=== PATIENT | female | born 1985 | race Native Hawaiian/Other Pacific Islander ===

== ENCOUNTER 2017-01-03 15:30 | Observation (INO) | payer OTHER ==
[~2017-01-03] VITALS: Ht 165.1 cm; Wt 97.5 kg
[2017-01-03] MEDS ORDERED: SYNT150T PO (15:37)
[2017-01-03] MEDS ORDERED: PRENTAB40 PO (15:37)
[2017-01-03] MEDS ORDERED: MORPHINE 2 MG/ML 1ML SYRINGE IV ONE (16:00)
[2017-01-03] MEDS ORDERED: NS 1,000 ML IV ONE ×3 (16:00→19:30)
[2017-01-03 16:18] LABS: BASO # 0.1 K/mm3 (0.0-0.2); BASO % 0.5 % (0.0-1.0); EOS # 0.2 K/mm3 (0.0-0.50); EOS % 1.8 % (0.0-3.0); LARGE UNSTAINED CELL # 0.2 K/mm3 (0.0-0.4); LARGE UNSTAINED CELL % 1.5 % (0.0-4.0); LYMPH # 3.3 K/mm3 (1.5-4.5); LYMPH % 27.8 % (24.0-44.0); MEAN CORPUSCULAR HEMOGLOBIN 28.6 pg (27.0-33.0); MEAN CORPUSCULAR HGB CONC 33.5 g/dl (32.0-36.5); MEAN CORPUSCULAR VOLUME 85.6 fl (80.0-96.0); MONO # 0.3 K/mm3 (0.0-0.8); MONO % 2.8 % (0.0-5.0); NEUTROPHILS # 7.3 K/mm3 (1.8-7.7); NEUTROPHILS % 65.6 % (36.0-66.0); PLATELET COUNT, AUTOMATED 374 k/mm3 (150-450); RED CELL DISTRIBUTION WIDTH 13.4 % (11.5-14.5); WHITE BLOOD COUNT 11.2 K/mm3 (4.0-10.0)
--- NOTE | 2017-01-03 17:27 | REP ---
Obstetric ultrasound, first trimester, emergency study for vaginal bleeding in passing large clots: There are no comparisons. By LMP. The patient has approximate 10 weeks gestation. The study is performed with transabdominal and endovaginal ultrasound. Balloon balloon The bladder is nondistended. There is a tiny volume of fluid in the endocervical canal. There is a 5.5 cm mass in the cervix. This could be a large clot or products of conception. There is no intrauterine gestational sac. The endometrium is not thickened measuring 3 mm. There is no fluid in the endometrial canal. The right and left ovaries could not be visualized. Impression: Findings are compatible with spontaneous in progress. Signed by Matti Rojas MD 01/03/2017 05:19 P
[2017-01-03] MEDS: LR 1,000 ML IV SCH (19:01)
[2017-01-03] MEDS ORDERED: CALC600T57 PO (19:11)
[2017-01-03 20:38] LABS: MEAN CORPUSCULAR HGB CONC 33.5 g/dl (32.0-36.5); MEAN CORPUSCULAR VOLUME 86.5 fl (80.0-96.0); RED CELL DISTRIBUTION WIDTH 13.7 % (11.5-14.5); WHITE BLOOD COUNT 10.2 K/mm3 (4.0-10.0)
[2017-01-03 23:30] VITALS: BP 108/63
[2017-01-04 04:00] VITALS: BP 107/52
[2017-01-04] MEDS: LR 1,000 ML IV SCH (04:08)
[2017-01-04] MEDS ORDERED: ACETAMINOPHEN 500 MG TAB PO PRN (04:45)
[2017-01-04] MEDS ORDERED: LEVOTHYROXINE 0.15 MG TAB (150 MCG) PO SCH (06:00)
[2017-01-04 07:04] LABS: BASO % 0.4 % (0.0-1.0); EOS # 0.2 K/mm3 (0.0-0.50); LARGE UNSTAINED CELL # 0.1 K/mm3 (0.0-0.4); LARGE UNSTAINED CELL % 1.3 % (0.0-4.0); LYMPH # 2.2 K/mm3 (1.5-4.5); LYMPH % 25.6 % (24.0-44.0); MEAN CORPUSCULAR HEMOGLOBIN 28.9 pg (27.0-33.0); MEAN CORPUSCULAR VOLUME 87.6 fl (80.0-96.0); MONO # 0.3 K/mm3 (0.0-0.8); MONO % 3.8 % (0.0-5.0); NEUTROPHILS # 5.8 K/mm3 (1.8-7.7); NEUTROPHILS % 66.8 % (36.0-66.0); PLATELET COUNT, AUTOMATED 224 k/mm3 (150-450); RED CELL DISTRIBUTION WIDTH 13.8 % (11.5-14.5); WHITE BLOOD COUNT 8.6 K/mm3 (4.0-10.0)
[2017-01-04 08:00] VITALS: BP 107/52
== END 2017-01-04 09:35 | disposition home or self-care (01) ==
LOC: M ED 16:59 → M ED INP 19:01 → M PED 23:30
PROVIDERS: ADMIT Obstetrics & Gynecology; ATTEND Obstetrics & Gynecology
DX: O03.1 Delayed or excessive hemorrhage following incomplete spontaneous abortion (principal); I95.1 Orthostatic hypotension; R00.0 Tachycardia, unspecified; E03.9 Hypothyroidism, unspecified

== ENCOUNTER 2018-03-02 09:07 | Emergency (ER) | payer OTHER ==
[2018-03-02 09:49] LABS: BASO # 0.1 10^3/uL (0.0-0.2); BASO % 0.6 % (0.0-1.0); EOS # 0.2 10^3/uL (0.0-0.50); EOS % 2.4 % (0.0-3.0); HEMATOCRIT 40.1 % (36.0-47.0); HEMOGLOBIN 13.4 g/dl (12.0-15.5); IMMATURE GRANULOCYTE % 0.3 % (0-3.0); LYMPH # 1.1 10^3/uL (1.5-4.5); LYMPH % 10.9 % (24.0-44.0); MEAN CORPUSCULAR HEMOGLOBIN 28.4 pg (27.0-33.0); MEAN CORPUSCULAR HGB CONC 33.4 g/dl (32.0-36.5); MONO # 0.5 10^3/uL (0.0-0.8); MONO % 5.2 % (0.0-5.0); NEUTROPHILS # 7.8 10^3/uL (1.8-7.7); NEUTROPHILS % 80.6 % (36.0-66.0); PLATELET COUNT, AUTOMATED 361 10^3/uL (150-450); RED BLOOD COUNT 4.72 10^6/uL (4.00-5.40); RED CELL DISTRIBUTION WIDTH 13.2 % (11.5-14.5); WHITE BLOOD COUNT 9.7 10^3/uL (4.0-10.0)
[2018-03-02] MEDS ORDERED: ONDANSETRON 4MG/2ML VIAL (J2405) As Ordered (09:58)
[2018-03-02] MEDS: NS 1,000 ML IV (10:00)
[2018-03-02 10:05] LABS: BEDSIDE GLUCOSE 105 MG/DL (70-105)
[2018-03-02] MEDS: ONDANSETRON 4MG/2ML VIAL (J2405) IV (10:09)
[2018-03-02 10:26] LABS: ALBUMIN 3.5 GM/DL (3.2-5.2); ALKALINE PHOSPHATASE 50 U/L (45-117); ALT/SGPT 19 U/L (12-78); ANION GAP 8 MEQ/L (8-16); AST/SGOT 12 U/L (7-37); BILIRUBIN,DIRECT < 0.1 MG/DL (0.0-0.2); BILIRUBIN,TOTAL 0.3 MG/DL (0.2-1.0); BLOOD UREA NITROGEN 10 MG/DL (7-18); CALCIUM LEVEL 6.6 MG/DL (8.5-10.1); CARBON DIOXIDE LEVEL 26 MEQ/L (21-32); CHLORIDE LEVEL 107 MEQ/L (98-107); CREATININE FOR GFR 0.94 MG/DL (0.55-1.30); FREE T4 1.23 NG/DL (0.76-1.46); GLOMERULAR FILTRATION RATE > 60.0 (>60); GLUCOSE, FASTING 119 MG/DL (70-100); MAGNESIUM LEVEL 1.8 MG/DL (1.8-2.4); POTASSIUM SERUM 3.6 MEQ/L (3.5-5.1); SODIUM LEVEL 141 MEQ/L (136-145); TOTAL PROTEIN 7.4 GM/DL (6.4-8.2)
[2018-03-02 12:07] LABS: AMPHETAMINES LEVEL URINE NEGATIVE (NEGATIVE); BARBITURATES URINE NEGATIVE (NEGATIVE); BENZODIAZEPINES URINE NEGATIVE (NEGATIVE); CANNABINOIDS URINE NEGATIVE (NEGATIVE); COCAINE METABOLITE URINE NEGATIVE (NEGATIVE); METHADONE URINE NEGATIVE (NEGATIVE); OPIATES URINE NEGATIVE (NEGATIVE); PHENCYCLIDINE URINE NEGATIVE (NEGATIVE)
[2018-03-02 12:20] LABS: KETONE, URINE AUTO RFX NEGATIVE (NEGATIVE); MUCUS, URINE RFX SMALL (NEGATIVE); NITRITE, URINE AUTO RFX NEGATIVE (NEGATIVE); RBC, URINE AUTO RFX 2 /HPF (0-3); SPECIFIC GRAVITY UR AUTO RFX 1.014 (1.002-1.035); SQUAM EPITHELIAL CELL UR AURFX 0 /HPF (0-6)
[2018-03-02 12:27] LABS: LEUKOCYTE ESTERASE UR AUTO RFX TRACE (NEGATIVE); WBC, URINE AUTO RFX 37 /HPF (0-3)
[2018-03-02] MEDS: NITROFURANTOIN (MACROBID) 100 MG CAP PO (13:27)
== END 2018-03-02 13:30 | disposition home or self-care (01) ==
LOC: M ED 09:07
DX: R55 Syncope and collapse (principal); N39.0 Urinary tract infection, site not specified; Z72.0 Tobacco use; Z79.899 Other long term (current) drug therapy
CPT/HCPCS: J2405

== ENCOUNTER 2018-04-25 12:48 | Inpatient (IN) | payer OTHER ==
[2018-04-25 13:36] LABS: IONIZED CALCIUM 2.9 MG/DL (4.5-5.3)
[2018-04-25 13:40] LABS: BASO % 0.5 % (0.0-1.0); EOS # 0.1 10^3/uL (0.0-0.50); EOS % 1.1 % (0.0-3.0); HEMATOCRIT 39.9 % (36.0-47.0); HEMOGLOBIN 13.6 g/dl (12.0-15.5); IMMATURE GRANULOCYTE % 0.4 % (0-3.0); LYMPH # 1.8 10^3/uL (1.5-4.5); LYMPH % 22.3 % (24.0-44.0); MEAN CORPUSCULAR HEMOGLOBIN 29.1 pg (27.0-33.0); MEAN CORPUSCULAR HGB CONC 34.1 g/dl (32.0-36.5); MEAN CORPUSCULAR VOLUME 85.4 fl (80.0-96.0); MONO # 0.6 10^3/uL (0.0-0.8); MONO % 6.9 % (0.0-5.0); NEUTROPHILS # 5.5 10^3/uL (1.8-7.7); NEUTROPHILS % 68.8 % (36.0-66.0); PLATELET COUNT, AUTOMATED 358 10^3/uL (150-450); RED BLOOD COUNT 4.67 10^6/uL (4.00-5.40); RED CELL DISTRIBUTION WIDTH 14.2 % (11.5-14.5); WHITE BLOOD COUNT 7.9 10^3/uL (4.0-10.0)
[2018-04-25 13:48] LABS: CONTROL LINE HCG INT CTR LINE PRESENT; HCG, SERUM QUALITATIVE NEGATIVE (NEGATIVE)
[2018-04-25 14:01] LABS: PTH INTACT < 6.3 PG/ML (18.5-88.0)
[2018-04-25 14:02] LABS: ALBUMIN 3.2 GM/DL (3.2-5.2); ALBUMIN/GLOBULIN RATIO 0.76 (1.00-1.93); ALKALINE PHOSPHATASE 39 U/L (45-117); ALT/SGPT 45 U/L (12-78); ANION GAP 8 MEQ/L (8-16); AST/SGOT 20 U/L (7-37); BILIRUBIN,TOTAL 0.5 MG/DL (0.2-1.0); BLOOD UREA NITROGEN 9 MG/DL (7-18); CALCIUM LEVEL 5.4 MG/DL (8.5-10.1); CARBON DIOXIDE LEVEL 25 MEQ/L (21-32); CHLORIDE LEVEL 109 MEQ/L (98-107); CREATININE FOR GFR 0.87 MG/DL (0.55-1.30); FREE THYROXINE INDEX 5.2 % (1.3-4.8); GLOMERULAR FILTRATION RATE > 60.0 (>60); GLUCOSE, FASTING 84 MG/DL (70-100); MAGNESIUM LEVEL 1.6 MG/DL (1.8-2.4); POTASSIUM SERUM 3.6 MEQ/L (3.5-5.1); SODIUM LEVEL 142 MEQ/L (136-145); T UPTAKE 32 % (30-39); THYROXINE (T4) 16.1 UG/DL (4.5-12.0); TOTAL PROTEIN 7.4 GM/DL (6.4-8.2)
[2018-04-25 14:36] LABS: TOTAL 25(OH) VITAMIN D 43.9 NG/ML (30.0-100.0)
[2018-04-25] MEDS: CALCIUM GLUCONATE 1,000 MG in D5W MINI-BAG PLUS 100 ML IV ×2 (15:01→16:12)
[2018-04-25 15:19] LABS: PHOSPHORUS LEVEL 5.5 MG/DL (2.5-4.9)
[2018-04-25] MEDS: MAG SULF 1GM/100ML (MAG RUN) 1 GM in APPROPRIATE DILUENT 1 EA IV ×2 (17:20→18:59)
[2018-04-25] MEDS ORDERED: ONDANSETRON 4MG/2ML VIAL (J2405) IV (17:30)
[2018-04-25 19:53] LABS: IONIZED CALCIUM 3.4 MG/DL (4.5-5.3)
[2018-04-25 20:14] LABS: CK-MB VALUE MASS < 1.0 NG/ML (<3.6); CPK CREATINE PHOSPHOKINASE 211 U/L (26-192); MB/CK RELATIVE INDEX 0.47 (< OR =4); TROPONIN I < 0.02 NG/ML (< 0.10)
[2018-04-25] MEDS: ENOXAPARIN 40 MG/0.4 ML SYRINGE (J1650) SC (21:00)
[2018-04-25] MEDS: CALCITRIOL 0.25 MCG CAP (S0169) PO (21:51)
[2018-04-25] MEDS: DOCUSATE SODIUM 100 MG CAP PO (21:51)
[2018-04-25] MEDS: CALCIUM CARBONATE 500 MG CHEW U/D PO (21:51)
[2018-04-26 00:21] LABS: IONIZED CALCIUM 3.2 MG/DL (4.5-5.3)
[2018-04-26 00:51] LABS: CK-MB VALUE MASS < 1.0 NG/ML (<3.6); CPK CREATINE PHOSPHOKINASE 188 U/L (26-192); MB/CK RELATIVE INDEX 0.53 (< OR =4); TROPONIN I < 0.02 NG/ML (< 0.10)
[2018-04-26] MEDS: CALCIUM GLUCONATE 1,000 MG in D5W MINI-BAG PLUS 100 ML IV ×3 (01:31→12:42)
[2018-04-26] MEDS: ACETAMINOPHEN TAB 650MG DOSE (2X325MG) PO (05:25)
[2018-04-26] MEDS: LEVOTHYROXINE 125MCG TABLET (0.125MG) PO (05:25)
[2018-04-26 05:46] LABS: HEMATOCRIT 38.8 % (36.0-47.0); MEAN CORPUSCULAR HEMOGLOBIN 28.9 pg (27.0-33.0); MEAN CORPUSCULAR HGB CONC 33.5 g/dl (32.0-36.5); MEAN CORPUSCULAR VOLUME 86.2 fl (80.0-96.0); PLATELET COUNT, AUTOMATED 314 10^3/uL (150-450); RED CELL DISTRIBUTION WIDTH 13.9 % (11.5-14.5); WHITE BLOOD COUNT 6.8 10^3/uL (4.0-10.0)
[2018-04-26 05:47] LABS: IONIZED CALCIUM 3.5 MG/DL (4.5-5.3)
[2018-04-26 06:09] LABS: ALBUMIN/GLOBULIN RATIO 0.83 (1.00-1.93); ALKALINE PHOSPHATASE 36 U/L (45-117); ALT/SGPT 44 U/L (12-78); AST/SGOT 19 U/L (7-37); BILIRUBIN,TOTAL 0.6 MG/DL (0.2-1.0); BLOOD UREA NITROGEN 9 MG/DL (7-18); CARBON DIOXIDE LEVEL 26 MEQ/L (21-32); CHLORIDE LEVEL 107 MEQ/L (98-107); CK-MB VALUE MASS < 1.0 NG/ML (<3.6); CPK CREATINE PHOSPHOKINASE 185 U/L (26-192); CREATININE FOR GFR 0.94 MG/DL (0.55-1.30); GLOMERULAR FILTRATION RATE > 60.0 (>60); GLUCOSE, FASTING 87 MG/DL (70-100); MB/CK RELATIVE INDEX 0.54 (< OR =4); PHOSPHORUS LEVEL 6.2 MG/DL (2.5-4.9); TOTAL PROTEIN 6.6 GM/DL (6.4-8.2); TROPONIN I < 0.02 NG/ML (< 0.10)
[2018-04-26 06:14] LABS: ANION GAP 10 MEQ/L (8-16); SODIUM LEVEL 143 MEQ/L (136-145)
[2018-04-26 06:20] LABS: POTASSIUM SERUM 4.4 MEQ/L (3.5-5.1)
[2018-04-26 06:21] LABS: CALCIUM LEVEL 6.7 MG/DL (8.5-10.1)
[2018-04-26] MEDS: CALCIUM CARBONATE 500 MG CHEW U/D PO ×3 (08:34→20:45)
[2018-04-26] MEDS: CALCITRIOL 0.25 MCG CAP (S0169) PO ×2 (08:34→20:45)
[2018-04-26] MEDS: PRENATAL VITAMINS CHEWABLE TABLET PO (08:34)
[2018-04-26] MEDS: DOCUSATE SODIUM 100 MG CAP PO ×2 (08:34→20:45)
[2018-04-26 08:53] LABS: MAGNESIUM LEVEL 1.8 MG/DL (1.8-2.4)
[2018-04-26] MEDS ORDERED: CALCITRIOL 0.25 MCG CAP (S0169) PO (09:00)
[2018-04-26] MEDS ORDERED: CALCIUM/VITAMIN D 500 MG TAB PO (09:00)
[2018-04-26 13:56] LABS: IONIZED CALCIUM 3.7 MG/DL (4.5-5.3)
[2018-04-26] MEDS: D5W IV (14:40)
[2018-04-26] MEDS: CALCIUM GLUCONATE IV (14:40)
[2018-04-26] MEDS: ENOXAPARIN 40 MG/0.4 ML SYRINGE (J1650) SC (20:45)
[2018-04-27 01:07] LABS: IONIZED CALCIUM 4.2 MG/DL (4.5-5.3)
[2018-04-27] MEDS: D5W IV (02:00)
[2018-04-27] MEDS: CALCIUM GLUCONATE IV (02:00)
[2018-04-27] MEDS: LEVOTHYROXINE 125MCG TABLET (0.125MG) PO (06:21)
[2018-04-27 07:16] LABS: HEMATOCRIT 40.7 % (36.0-47.0); HEMOGLOBIN 13.6 g/dl (12.0-15.5); MEAN CORPUSCULAR HEMOGLOBIN 28.8 pg (27.0-33.0); MEAN CORPUSCULAR HGB CONC 33.4 g/dl (32.0-36.5); PLATELET COUNT, AUTOMATED 314 10^3/uL (150-450); RED BLOOD COUNT 4.73 10^6/uL (4.00-5.40); RED CELL DISTRIBUTION WIDTH 13.8 % (11.5-14.5)
[2018-04-27 07:16] LABS: IONIZED CALCIUM 4.5 MG/DL (4.5-5.3)
[2018-04-27 07:35] LABS: ALBUMIN 3.1 GM/DL (3.2-5.2); ALBUMIN/GLOBULIN RATIO 0.76 (1.00-1.93); ALKALINE PHOSPHATASE 38 U/L (45-117); ALT/SGPT 41 U/L (12-78); ANION GAP 6 MEQ/L (8-16); AST/SGOT 14 U/L (7-37); BILIRUBIN,TOTAL 0.6 MG/DL (0.2-1.0); BLOOD UREA NITROGEN 12 MG/DL (7-18); CALCIUM LEVEL 8.5 MG/DL (8.5-10.1); CARBON DIOXIDE LEVEL 28 MEQ/L (21-32); CHLORIDE LEVEL 108 MEQ/L (98-107); CREATININE FOR GFR 0.96 MG/DL (0.55-1.30); GLOMERULAR FILTRATION RATE > 60.0 (>60); GLUCOSE, FASTING 108 MG/DL (70-100); PHOSPHORUS LEVEL 5.7 MG/DL (2.5-4.9); POTASSIUM SERUM 4.5 MEQ/L (3.5-5.1); SODIUM LEVEL 142 MEQ/L (136-145); TOTAL PROTEIN 7.2 GM/DL (6.4-8.2)
[2018-04-27] MEDS: DOCUSATE SODIUM 100 MG CAP PO ×2 (09:28→20:10)
[2018-04-27] MEDS: CALCIUM CARBONATE 500 MG CHEW U/D PO ×3 (09:28→20:11)
[2018-04-27] MEDS: PRENATAL VITAMINS CHEWABLE TABLET PO (09:29)
[2018-04-27] MEDS: CALCITRIOL 0.25 MCG CAP (S0169) PO (09:29)
[2018-04-27] MEDS: LISINOPRIL 20 MG TAB PO (13:10)
[2018-04-27 19:20] LABS: IONIZED CALCIUM 4.5 MG/DL (4.5-5.3)
[2018-04-27 19:39] LABS: ALBUMIN 3.5 GM/DL (3.2-5.2); ANION GAP 8 MEQ/L (8-16); BLOOD UREA NITROGEN 15 MG/DL (7-18); CALCIUM LEVEL 8.8 MG/DL (8.5-10.1); CARBON DIOXIDE LEVEL 28 MEQ/L (21-32); CHLORIDE LEVEL 105 MEQ/L (98-107); CREATININE FOR GFR 0.93 MG/DL (0.55-1.30); GLOMERULAR FILTRATION RATE > 60.0 (>60); GLUCOSE, FASTING 102 MG/DL (70-100); PHOSPHORUS LEVEL 5.3 MG/DL (2.5-4.9); POTASSIUM SERUM 4.3 MEQ/L (3.5-5.1); SODIUM LEVEL 141 MEQ/L (136-145)
[2018-04-27] MEDS: ENOXAPARIN 40 MG/0.4 ML SYRINGE (J1650) SC (20:11)
[2018-04-28 05:08] LABS: HEMATOCRIT 40.1 % (36.0-47.0); HEMOGLOBIN 13.7 g/dl (12.0-15.5); MEAN CORPUSCULAR HEMOGLOBIN 28.7 pg (27.0-33.0); MEAN CORPUSCULAR HGB CONC 34.2 g/dl (32.0-36.5); MEAN CORPUSCULAR VOLUME 84.1 fl (80.0-96.0); PLATELET COUNT, AUTOMATED 344 10^3/uL (150-450); RED BLOOD COUNT 4.77 10^6/uL (4.00-5.40); RED CELL DISTRIBUTION WIDTH 13.8 % (11.5-14.5); WHITE BLOOD COUNT 7.7 10^3/uL (4.0-10.0)
[2018-04-28 05:28] LABS: ALBUMIN 3.2 GM/DL (3.2-5.2); ALKALINE PHOSPHATASE 41 U/L (45-117); ALT/SGPT 35 U/L (12-78); ANION GAP 7 MEQ/L (8-16); AST/SGOT 10 U/L (7-37); BILIRUBIN,TOTAL 0.5 MG/DL (0.2-1.0); BLOOD UREA NITROGEN 14 MG/DL (7-18); CALCIUM LEVEL 8.7 MG/DL (8.5-10.1); CARBON DIOXIDE LEVEL 29 MEQ/L (21-32); CHLORIDE LEVEL 105 MEQ/L (98-107); CREATININE FOR GFR 1.05 MG/DL (0.55-1.30); GLOMERULAR FILTRATION RATE > 60.0 (>60); GLUCOSE, FASTING 106 MG/DL (70-100); PHOSPHORUS LEVEL 4.9 MG/DL (2.5-4.9); POTASSIUM SERUM 3.9 MEQ/L (3.5-5.1); SODIUM LEVEL 141 MEQ/L (136-145); TOTAL PROTEIN 7.2 GM/DL (6.4-8.2)
[2018-04-28] MEDS: LEVOTHYROXINE 125MCG TABLET (0.125MG) PO (05:35)
[2018-04-28] MEDS: DOCUSATE SODIUM 100 MG CAP PO (08:52)
[2018-04-28] MEDS: CALCIUM CARBONATE 500 MG CHEW U/D PO (08:52)
[2018-04-28] MEDS: PRENATAL VITAMINS CHEWABLE TABLET PO (08:53)
[2018-04-28] MEDS: CALCITRIOL 0.25 MCG CAP (S0169) PO (08:53)
[2018-04-28] MEDS: LISINOPRIL 20 MG TAB PO (08:53)
[2018-04-29 00:09] LABS: VITAMIN D 1,25 DIHYDROXY 30.1 pg/mL (19.9-79.3)
== END 2018-04-28 11:25 | disposition home or self-care (01) | DRG 641 ==
LOC: M ED 12:48 → M ED INP 17:24 → M PCU 20:50
PROVIDERS: Hospitalist
DX: E83.51 Hypocalcemia (principal); I10 Essential (primary) hypertension; E83.39 Other disorders of phosphorus metabolism; Z85.850 Personal history of malignant neoplasm of thyroid; E89.0 Postprocedural hypothyroidism; Z79.899 Other long term (current) drug therapy; F17.200 Nicotine dependence, unspecified, uncomplicated

== ENCOUNTER 2018-07-23 15:49 | Emergency (ER) | payer OTHER ==
[2018-07-23 16:59] LABS: KETONE, URINE AUTO RFX NEGATIVE (NEGATIVE); NITRITE, URINE AUTO RFX NEGATIVE (NEGATIVE); RBC, URINE AUTO RFX 4 /HPF (0-3); SPECIFIC GRAVITY UR AUTO RFX 1.004 (1.002-1.035); SQUAM EPITHELIAL CELL UR AURFX 0 /HPF (0-6); WBC, URINE AUTO RFX 9 /HPF (0-3)
[2018-07-23 17:00] LABS: LEUKOCYTE ESTERASE UR AUTO RFX TRACE (NEGATIVE)
[2018-07-23 17:36] LABS: BASO % 0.3 % (0.0-1.0); EOS # 0.3 10^3/uL (0.0-0.50); EOS % 1.8 % (0.0-3.0); HEMATOCRIT 38.6 % (36.0-47.0); HEMOGLOBIN 13.1 g/dl (12.0-15.5); IMMATURE GRANULOCYTE % 0.3 % (0-3.0); LYMPH # 2.7 10^3/uL (1.5-4.5); LYMPH % 20.1 % (24.0-44.0); MEAN CORPUSCULAR HEMOGLOBIN 29.8 pg (27.0-33.0); MEAN CORPUSCULAR HGB CONC 33.9 g/dl (32.0-36.5); MEAN CORPUSCULAR VOLUME 87.7 fl (80.0-96.0); MONO # 0.8 10^3/uL (0.0-0.8); MONO % 5.7 % (0.0-5.0); NEUTROPHILS # 9.7 10^3/uL (1.8-7.7); NEUTROPHILS % 71.8 % (36.0-66.0); PLATELET COUNT, AUTOMATED 366 10^3/uL (150-450); RED CELL DISTRIBUTION WIDTH 12.9 % (11.5-14.5); WHITE BLOOD COUNT 13.6 10^3/uL (4.0-10.0)
[2018-07-23 18:02] LABS: ALBUMIN 3.7 GM/DL (3.2-5.2); ALBUMIN/GLOBULIN RATIO 0.97 (1.00-1.93); ALKALINE PHOSPHATASE 57 U/L (45-117); ALT/SGPT 19 U/L (12-78); AMYLASE 36 U/L (25-115); ANION GAP 8 MEQ/L (8-16); AST/SGOT 15 U/L (7-37); BILIRUBIN,DIRECT 0.2 MG/DL (0.0-0.2); BILIRUBIN,TOTAL 0.7 MG/DL (0.2-1.0); BLOOD UREA NITROGEN 9 MG/DL (7-18); CALCIUM LEVEL 8.1 MG/DL (8.5-10.1); CARBON DIOXIDE LEVEL 28 MEQ/L (21-32); CHLORIDE LEVEL 105 MEQ/L (98-107); CREATININE FOR GFR 0.84 MG/DL (0.55-1.30); GLOMERULAR FILTRATION RATE > 60.0 (>60); GLUCOSE, FASTING 83 MG/DL (70-100); LIPASE 154 U/L (73-393); POTASSIUM SERUM 4.2 MEQ/L (3.5-5.1); SODIUM LEVEL 141 MEQ/L (136-145); TOTAL PROTEIN 7.5 GM/DL (6.4-8.2)
[2018-07-23] MEDS: NS 1,000 ML IV (19:07)
[2018-07-23] MEDS: MORPHINE 2 MG/ML 1ML SYRINGE (J2270) IV (19:08)
[2018-07-23] MEDS ORDERED: ISOVUE-370 76% 100ML VIAL (Q9967) As Ordered (19:08)
[2018-07-23] MEDS: metroNIDAZOLE (FLAGYL) 500 MG TAB PO (21:25)
[2018-07-23] MEDS: CIPROFLOXACIN 500 MG TAB PO (21:25)
== END 2018-07-23 21:34 | disposition home or self-care (01) ==
LOC: M ED 15:49
DX: N30.00 Acute cystitis without hematuria (principal); K80.20 Calculus of gallbladder without cholecystitis without obstruction; K57.32 Diverticulitis of large intestine without perforation or abscess without bleeding; K76.0 Fatty (change of) liver, not elsewhere classified; N28.89 Other specified disorders of kidney and ureter; I10 Essential (primary) hypertension; E83.51 Hypocalcemia; Z85.850 Personal history of malignant neoplasm of thyroid; Z82.3 Family history of stroke; Z72.0 Tobacco use
CPT/HCPCS: Q9967

== ENCOUNTER → 2018-08-08 | Outpatient (REF) | payer OTHER ==
[2018-08-08 14:16] LABS: FREE T4 1.73 NG/DL (0.76-1.46); THYROID STIMULATING HORMONE 0.447 uIU/ML (0.358-3.740)
== END ==
LOC: M LAB REF 13:05
DX: E03.8 Other specified hypothyroidism (principal)

== ENCOUNTER → 2019-06-11 | Outpatient (REF) | payer OTHER ==
[~2019-06-11] MED LIST: APAP325T4 PO; CALC1CAP31 PO; CALC500C16 PO; CALC600T57 PO; CIPR-249 PO; FLAG500T PO; HYDR-3715 PO; LEVO125T4 PO; LISI-538 PO; LISI10TA4 PO; MACR100C43 PO; MAGN400C PO; NORC1TAB7 PO; NUVAMIS2 PV; OYST500T11 PO; PRENTAB40 PO; SYNT150T PO; ZOFR4TAB14 PO
== END ==
LOC: M LAB REF 13:06
PROVIDERS: ATTEND Internal Medicine Nephrology
DX: E20.9 Hypoparathyroidism, unspecified (principal)

== ENCOUNTER 2019-06-12 17:04 | Emergency (ER) | payer OTHER ==
[~2019-06-12] VITALS: Ht 165.1 cm; Wt 91.3 kg
[~2019-06-12 17:04] MED LIST changes: -LISI10TA4 PO; -MAGN400C PO; -NORC1TAB7 PO; -OYST500T11 PO
[2019-06-12] MEDS ORDERED: LISI10TA4 PO (17:31)
[2019-06-12] MEDS ORDERED: SYNT150T PO (17:31)
[2019-06-12 18:04] LABS: IONIZED CALCIUM 4.5 MG/DL (4.5-5.3)
[2019-06-12 18:05] LABS: BASO # 0.1 10^3/uL (0.0-0.2); BASO % 0.9 % (0.0-1.0); EOS # 0.2 10^3/uL (0.0-0.5); EOS % 2.5 % (0.0-3.0); HEMATOCRIT 32.2 % (36.0-47.0); HEMOGLOBIN 10.4 g/dl (12.0-15.5); LYMPH # 1.8 10^3/uL (1.5-5.0); LYMPH % 20.8 % (24.0-44.0); MEAN CORPUSCULAR HEMOGLOBIN 25.9 pg (27.0-33.0); MEAN CORPUSCULAR HGB CONC 32.3 g/dl (32.0-36.5); MEAN CORPUSCULAR VOLUME 80.1 fl (80.0-96.0); MONO # 0.7 10^3/uL (0.0-0.8); MONO % 7.4 % (0.0-5.0); NEUTROPHILS % 68.2 % (36.0-66.0); PLATELET COUNT, AUTOMATED 392 10^3/uL (150-450); RED BLOOD COUNT 4.02 10^6/uL (4.00-5.40); WHITE BLOOD COUNT 8.8 10^3/uL (4.0-10.0)
[2019-06-12 18:39] LABS: BLOOD UREA NITROGEN 11 MG/DL (7-18); CALCIUM LEVEL 8.8 MG/DL (8.5-10.1); CARBON DIOXIDE LEVEL 28 MEQ/L (21-32); CHLORIDE LEVEL 103 MEQ/L (98-107); CREATININE FOR GFR 0.84 MG/DL (0.55-1.30); FREE T4 1.14 NG/DL (0.76-1.46); GLOMERULAR FILTRATION RATE > 60.0 (>60); GLUCOSE, FASTING 97 MG/DL (70-100); MAGNESIUM LEVEL 1.6 MG/DL (1.8-2.4); POTASSIUM SERUM 4.2 MEQ/L (3.5-5.1); SODIUM LEVEL 139 MEQ/L (136-145)
[2019-06-12] MEDS ORDERED: MORPHINE 4 MG/ML 1ML VIAL/SYRINGE (J2270) IV ONE (19:15)
--- NOTE | 2019-06-12 19:49 | REPVR ---
EXAM: US Retroperitoneal Complete. EXAM DATE/TIME: 06/12/2019 6:29 PM CLINICAL HISTORY: 34 years old, female; Abdominal pain; Flank; Other: Bilateral; Additional info: Bilateral flank pain TECHNIQUE: Imaging protocol: Real-time ultrasound of the retroperitoneum with image documentation. Complete exam. COMPARISON: GALLBLADDER US 07/23/2018 4:50 PM FINDINGS: Right kidney: The right kidney is atrophic measured at 7.7 cm in length. No hydronephrosis. Echogenic renal pyramids suggesting medullary nephrocalcinosis. Left kidney: The left kidney measures 12.2 cm in length. No hydronephrosis. Echogenic renal pyramids suggesting medullary nephrocalcinosis. Bladder: The bladder is unremarkable. IMPRESSION: 1. No evidence of hydronephrosis. 2. Atrophic left kidney again demonstrated. Electronically signed by: Enedelia Javed On 06/12/2019 19:49:26 PM
[2019-06-12] MEDS ORDERED: NORC1TAB7 PO (20:13)
[2019-06-12] MEDS ORDERED: NORCO 5/325MG TABLET (BULK FOR ED) PO ONE (20:15)
[2019-06-12 20:48] VITALS: BP 180/90
[2019-06-18] MEDS ORDERED: OYST500T11 PO (14:51)
[2019-06-18] MEDS ORDERED: MAGN400C PO (14:51)
== END 2019-06-12 20:53 | disposition home or self-care (01) ==
LOC: M ED 17:04
DX: R10.9 Unspecified abdominal pain (principal); I10 Essential (primary) hypertension; G40.909 Epilepsy, unspecified, not intractable, without status epilepticus; E83.51 Hypocalcemia; E03.9 Hypothyroidism, unspecified; N26.1 Atrophy of kidney (terminal); Z85.850 Personal history of malignant neoplasm of thyroid; Z79.899 Other long term (current) drug therapy
CPT/HCPCS: 76775; 80048; 81001; 82330; 83735; 84439; 84443; 85025; 96374; 99284; J2270

== ENCOUNTER 2019-06-22 05:38 | Day surgery (SDC) | payer OTHER ==
[~2019-06-22] VITALS: Ht 165.1 cm; Wt 88.0 kg
[~2019-06-22 05:38] MED LIST changes: +LISI10TA4 PO; +MAGN400C PO; +NORC1TAB7 PO; +OYST500T11 PO
[2019-06-22] MEDS ORDERED: LIDOCAINE 1% MDV 20ML VIAL SQ PRN (06:00)
[2019-06-22 06:25] LABS: URINE PREG TEST NEGATIVE (NEGATIVE)
[2019-06-22] MEDS ORDERED: fentaNYL 100 MCG/2 ML INJECTION (J3010) As Ordered ONE (06:39)
[2019-06-22] MEDS ORDERED: MIDAZOLAM INJ 2 MG/2 ML VIAL (J2250) As Ordered ONE ×2 (06:39→07:16)
[2019-06-22] MEDS ORDERED: ceFAZolin SOD 2 GM in IV 1 EA IV ONE (06:45)
[2019-06-22] MEDS ORDERED: LR 1,000 ML IV ONE (06:45)
[2019-06-22] MEDS ORDERED: propofoL 200 MG/20 ML VIAL As Ordered ONE (07:15)
[2019-06-22] MEDS ORDERED: LIDOCAINE 2% INJ 100 MG/5 ML SDV (FOR ANES.) As Ordered ONE (07:15)
[2019-06-22] MEDS ORDERED: ROCURONIUM BROMIDE 50 MG/5 ML VIAL As Ordered ONE (07:15)
[2019-06-22] MEDS ORDERED: fentaNYL 250 MCG/5 ML INJECTION (J3010) As Ordered ONE (07:16)
[2019-06-22] MEDS ORDERED: BUPIVACAINE HCL 0.5% 30 ML VIAL As Ordered ONE (07:53)
[2019-06-22] MEDS ORDERED: KETOROLAC 60 MG/2 ML VIAL (J1885) As Ordered ONE (08:19)
[2019-06-22] MEDS ORDERED: ONDANSETRON 4MG/2ML VIAL (J2405) As Ordered ONE ×2 (08:19→10:14)
[2019-06-22] MEDS ORDERED: dexameTHASONE 4 MG/ML 1ML VIAL (J1100) As Ordered ONE (08:19)
[2019-06-22] MEDS ORDERED: LR 1,000 ML IV SCH ×2 (10:15→10:30)
[2019-06-22] MEDS ORDERED: ONDANSETRON 4MG/2ML VIAL (J2405) IV PRN (10:15)
[2019-06-22] MEDS ORDERED: PERCOCET 5MG/325MG TAB PO PRN (10:15)
[2019-06-22] MEDS ORDERED: METOCLOPRAMIDE INJ 10MG/2ML VIAL (J2765) IV PRN (10:15)
[2019-06-22] MEDS: fentaNYL 100 MCG/2 ML INJECTION (J3010) IV PRN ×4 (10:30→10:45)
[2019-06-22] MEDS ORDERED: oxyCODONE 5MG TAB PO PRN ×2 (10:30)
[2019-06-22] MEDS ORDERED: METOCLOPRAMIDE INJ 10MG/2ML VIAL (J2765) As Ordered ONE (11:39)
[2019-06-22 12:25] VITALS: BP 135/87
--- NOTE | 2019-06-23 07:10 | REP ---
FLUOROSCOPIC GUIDANCE: 06/22/2019. Clinical history: Posterior tibial tendonitis, flat foot deformity. Pain. Findings: Image does not have side marker. Confirmation note by the x-ray tech stating that right foot confirmed by charge nurse in the OR. Single view shows a probe overlying the medial aspect of the navicular. Fluoroscopy time: 20 seconds. Electronically Signed by Naeem Jeong MD 06/23/2019 08:16 A
--- NOTE | 2019-06-23 22:26 | RO ---
DATE OF PROCEDURE: 06/22/2019 PREPROCEDURE DIAGNOSIS: Right posterior tibial tendinosis. POSTPROCEDURE DIAGNOSIS: Right posterior tibial tendinosis. PROCEDURE: 1. Right flexor digitorum longus transfer to the navicular. 2. Right posterior tibial tendon synovectomy. 3. Right posterior tibial tendon excision of tendinotic portion. 4. Use of the mini C-arm. SURGEON: Jyothi Morel MD PATIENT FINANCIAL SERVICES MANAGER: MARC Carey ANESTHESIA: LMA. SPECIMENS: Posterior tibial tendon. ESTIMATED BLOOD LOSS: 10 mL. COMPLICATIONS: None. CONDITION: Stable to recovery. INDICATIONS: Denise Lofton is a 34-year-old female who has had longstanding pain due to significant right-sided posterior tibial tendinosis. She has failed conservative measures and presents for a right flexor digitorum longus (FDL) transfer. I had considered medializing calcaneal osteotomy, but after review of patient's multiple x-rays and clinical exam, the patient has neutral to almost slight varus alignment, and it was felt that sliding her heel would result in a varus deformity, so plan was made to hold off on this procedure. She also does not have tightness of her gastrocnemius muscle, so again plan was made to solely proceed with FDL transfer. DESCRIPTION OF PROCEDURE: The patient was met in the preoperative holding area where her right lower extremity was marked as the correct operative site. She was taken to the operating room and placed in the supine position on the operating room table. Bony prominences were well padded. A well-padded tourniquet was placed on the right upper thigh. She was given antibiotics within 60 minutes prior to incision. A chlorhexidine scrub was performed of the right lower extremity. It was then prepped and draped in the normal sterile fashion. An official time-out was held where the correct patient, operative site and operative extremity were confirmed. Following this, the leg was exsanguinated with an Esmarch tourniquet and tourniquet inflated to 275 mmHg. Incision was made directly medially over the posterior tibial tendon. Immediately after entering the tendon sheath, there was significant fluid from her advanced tendinosis and tenosynovitis. There was also significant synovial tissue that was removed. The tendon was quite enlarged up to ten times its normal width. The FDL tendon was easily identified beneath the posterior tibial tendon in its own sheath It was tracked to the Knot of Bruce. Crossing vessels were coagulated. The tendon was cut near the Knot of Bruce. Following this, the posterior tibial tendon was removed from its insertion at the navicular. Using a Beath pin, the location of the transfer was confirmed using mini C-arm. When I was satisfied with the location, it was reamed with a 5.0 reamer as the tendon measured approximately 4-1/2 mm. Tendon was then passed through the hole in the navicular from a plantar dorsal direction. It was secured to surrounding tissues using #2 and 2-0 FiberWire. The tendon was tied down with the foot in neutral dorsiflexion and slight inversion. It was secure following transfer. Following this, the posterior tibial tendon was examined. Again, it was quite enlarged with poor tendinotic tissue. The majority of the tendon was excised; it was likely this would continue to be a pain generator should I leave it attached. Copious irrigation was performed. Subcutaneous tissues were closed using #3-0 Vicryl and skin was closed using #3-0 nylon. Patient was placed into a well-padded cast in slight inversion. 0.50% Marcaine was used for local anesthesia prior to cast placement. Patient was then awoken from anesthesia and transferred to the recovery room in stable condition. PLAN: Patient will be non-weightbearing on the right lower extremity for 6 weeks. She will be on aspirin for deep vein thrombosis (DVT) prophylaxis. I will see her back in the office in 2 weeks for cast change and likely suture removal. ARIANA
== END 2019-06-22 13:04 | disposition home or self-care (01) ==
LOC: M SDC 05:38
PROVIDERS: ATTEND Orthopaedic Surgery
DX: M76.821 Posterior tibial tendinitis, right leg (principal); I10 Essential (primary) hypertension; E03.9 Hypothyroidism, unspecified; Z92.3 Personal history of irradiation; Z79.899 Other long term (current) drug therapy; Z88.8 Allergy status to other drugs, medicaments and biological substances; F17.290 Nicotine dependence, other tobacco product, uncomplicated
CPT/HCPCS: 27658; 27691; 76000; 84703; 88304; 97116; J0690; J1100; J1885; J2250; J2405; J2765; J3010

== ENCOUNTER 2019-09-14 20:41 | Emergency (ER) | payer OTHER ==
[~2019-09-14] VITALS: Ht 165.1 cm; Wt 94.1 kg
[2019-09-14] MEDS ORDERED: PROPARACAINE 0.5% OPHTH SOL 15ML OS ONE (21:45)
[2019-09-14] MEDS ORDERED: FLUORESCEIN OPHTH 1 MG STRIP OS ONE (21:45)
[2019-09-14] MEDS ORDERED: ERYTHROMYCIN OPHTH OINT OS ONE (22:15)
[2019-09-14] MEDS ORDERED: ERYT1OIN26 OP (22:27)
[2019-09-14 22:45] VITALS: BP 132/86
== END 2019-09-14 22:50 | disposition home or self-care (01) ==
LOC: M ED 20:41
DX: H10.9 Unspecified conjunctivitis (principal); Z77.098 Contact with and (suspected) exposure to other hazardous, chiefly nonmedicinal, chemicals; I10 Essential (primary) hypertension; E03.9 Hypothyroidism, unspecified; Z79.899 Other long term (current) drug therapy; Z88.8 Allergy status to other drugs, medicaments and biological substances

== ENCOUNTER 2019-10-12 05:01 | Observation (INO) | payer OTHER ==
[2019-10-12] VITALS (16 sets, daily range): BP systolic 110–150; BP diastolic 62–98
[~2019-10-12] VITALS: Ht 165.1 cm; Wt 90.6 kg
[~2019-10-12 05:01] MED LIST changes: +ERYT1OIN26 OP
[2019-10-12 05:57] LABS: BASO # 0.1 10^3/uL (0.0-0.2); BASO % 0.6 % (0.0-1.0); EOS # 0.3 10^3/uL (0.0-0.5); EOS % 3.9 % (0.0-3.0); LYMPH # 1.9 10^3/uL (1.5-5.0); LYMPH % 24.1 % (24.0-44.0); MEAN CORPUSCULAR HEMOGLOBIN 23.8 pg (27.0-33.0); MEAN CORPUSCULAR HGB CONC 30.1 g/dl (32.0-36.5); MEAN CORPUSCULAR VOLUME 78.9 fl (80.0-96.0); MONO # 0.5 10^3/uL (0.0-0.8); MONO % 6.7 % (0.0-5.0); NEUTROPHILS # 5.1 10^3/uL (1.5-8.5); NEUTROPHILS % 64.3 % (36.0-66.0); PLATELET COUNT, AUTOMATED 427 10^3/uL (150-450); RED BLOOD COUNT 2.65 10^6/uL (4.00-5.40); WHITE BLOOD COUNT 7.9 10^3/uL (4.0-10.0)
[2019-10-12 06:00] LABS: HEMATOCRIT 20.9 % (36.0-47.0); HEMOGLOBIN 6.3 g/dl (12.0-15.5)
[2019-10-12 06:17] LABS: BLOOD UREA NITROGEN 13 MG/DL (7-18); CALCIUM LEVEL 6.5 MG/DL (8.5-10.1); CARBON DIOXIDE LEVEL 23 MEQ/L (21-32); CHLORIDE LEVEL 107 MEQ/L (98-107); CREATININE FOR GFR 0.83 MG/DL (0.55-1.30); GLOMERULAR FILTRATION RATE > 60.0 (>60); GLUCOSE, FASTING 89 MG/DL (70-100); POTASSIUM SERUM 4.1 MEQ/L (3.5-5.1); SODIUM LEVEL 139 MEQ/L (136-145)
--- NOTE | 2019-10-12 07:45 | REPVR ---
PROCEDURE INFORMATION: Exam: US Pelvis Complete, Transabdominal and US Pelvis, Transvaginal and US Duplex Artery and Vein, Ovaries, Complete Exam date and time: 10/12/2019 7:28 AM Age: 34 years old Clinical indication: Menstruation abnormalities; Excessive menstruation; Additional info: Dysmenorrhea, low back melquiades, anemia TECHNIQUE: Imaging protocol: Real-time transabdominal and transvaginal pelvic ultrasound (complete) with image documentation. Transvaginal imaging was used for better evaluation of the endometrium and adnexa. Real-time duplex ultrasound scan of the arterial and venous flow of the ovaries with B-mode, color Doppler flow and spectral waveform analysis. COMPARISON: CT ABD/PEL W/IV CONTRAST ONLY 07/23/2018 7:14 PM FINDINGS: Uterus/cervix: Uterus measures 10.2 x 5.4 x 6.5 cm Endometrial stripe is thickened and heterogeneous with mild associated vascularity measuring 2.5 cm. Trace fluid along the endometrial canal. Nabothian cysts. Right adnexa: Right ovary measures 6.3 x 3.2 x 4 cm. There is a complex 2.8 x 3.2 x 3 cm right ovarian cyst containing internal low level echoes. Normal waveforms. Left adnexa: Left ovary measures 3.4 x 1.1 x 2 cm. Normal waveforms. Free fluid: None. Bladder: Normal. IMPRESSION: Endometrial stripe is thickened and heterogeneous with mild associated vascularity measuring 2.5 cm. Trace fluid along the endometrial canal. Complex 2.8 x 3.2 x 3 cm right ovarian cyst containing internal low level echoes. No evidence of ovarian torsion. Electronically signed by: Hari Ray On 10/12/2019 07:45:25 AM
[2019-10-12 14:09] LABS: BASO # 0.1 10^3/uL (0.0-0.2); BASO % 0.7 % (0.0-1.0); EOS # 0.3 10^3/uL (0.0-0.5); EOS % 3.8 % (0.0-3.0); HEMOGLOBIN 7.6 g/dl (12.0-15.5); LYMPH % 27.2 % (24.0-44.0); MEAN CORPUSCULAR HEMOGLOBIN 25.1 pg (27.0-33.0); MEAN CORPUSCULAR HGB CONC 30.4 g/dl (32.0-36.5); MEAN CORPUSCULAR VOLUME 82.5 fl (80.0-96.0); MONO # 0.6 10^3/uL (0.0-0.8); MONO % 7.7 % (0.0-5.0); NEUTROPHILS # 4.4 10^3/uL (1.5-8.5); NEUTROPHILS % 60.3 % (36.0-66.0); PLATELET COUNT, AUTOMATED 380 10^3/uL (150-450); RED BLOOD COUNT 3.03 10^6/uL (4.00-5.40); WHITE BLOOD COUNT 7.3 10^3/uL (4.0-10.0)
[2019-10-12] MEDS ORDERED: LISI-542 PO (15:19)
[2019-10-12] MEDS ORDERED: LEVO2TA PO (15:19)
[2019-10-12] MEDS ORDERED: MULTCAP PO (15:20)
[2019-10-12] MEDS ORDERED: KETOROLAC 30 MG/ML VIAL (J1885) IV ONE (15:30)
--- NOTE | 2019-10-12 16:28 | HPEPDOC ---
General Date of Admission 10/12/2019 Date of Service: Oct 12, 2019 Chief Complaint heavy vaginal bleeding Source: Patient Exam Limitations: No limitations History of Present Illness 34 year old female presents with heavy vaginal bleeding. States had her last menstrual period on 09/18/19, which was heavier than usual. Since that time she has had continued episodes of heavy vaginal bleeding, states "at one point I was using 1 pad at least every hour". Increasing weakness and fatigue for the past one week. Presents to the ED for evaluation. Found to have a Hgb/Hct 6.3/21, transfused 2U PRBC in ED, repeat 7.5. PRODUCTION LINE WELDER Dr. South consulted, recommending inpatient admission and 2 more units of PRBC, will see as inpatient. Home Medications Scheduled Levothyroxine Sodium (Synthroid) 200 Mcg Tablet, 200 MCG PO DAILY, (Reported) Lisinopril (Lisinopril) 5 Mg Tablet, 5 MG PO DAILY, (Reported) Multivitamin (Multivitamins) 1 Each Capsule, 1 CAP PO DAILY, (Reported) Allergies Coded Allergies: lisinopril (Verified Adverse Reaction, Mild, COUGH, 06/22/19) Past Medical History Medical History none Surgical History R ankle surgery, thyroidectomy Family History Significant Family History: No pertinent family hx Social History * Smoker: Denies Alcohol: Denies Drugs: denies A-FIB/CHADSVASC A-FIB History Current/History of A-Fib/PAF?: No Current PO Anticoag Therapy: No Review of Systems Constitutional: Reports: Weakness, Fatigue Eyes: Denies: Pain, Vision change ENT: Denies: Head Aches, Ear Pain, Dysphagia Skin: Denies: Rash, Lesions, Breakdown Pulmonary: Denies: Dyspnea, Cough Cardiovascular: Denies: Chest Pain, Palpitations, Orthopnea, Paroxysmal Noc. Dyspnea, Lt Headedness Gastrointestinal: Denies: Nausea, Vomiting, Abdominal Pain, Diarrhea Genitourinary: Denies: Dysuria, Frequency, Incontinence, Retention Hematologic: Denies: Bruising, Bleeding Excessively Musculoskeletal: Denies: Neck Pain, Back Pain, Joint Pain, Muscle Pain, Spasms Neurological: Denies: Weakness, Numbness, Change in speech, Confusion Psych: Reports: Mood Normal; Denies: Depression, Memory Issues Physical Examination General Exam: Positive: Alert, No Acute Distress Eye Exam: Positive: PERRLA, Conjunctiva & lids normal, EOMI; Negative: Sclera icteric ENT Exam: Positive: Atraumatic, Mucous membr. moist/pink, Pharynx Normal Neck Exam: Positive: Supple; Negative: JVD, thyromegaly Chest Exam: Positive: Clear to auscultation, Normal air movement Heart Exam: Positive: Rate Normal, Regular Rhythm, Normal S1, Normal S2; Negative: Murmurs, Rubs Telemetry: Positive: No significant arrhythmia Abdomen Exam: Positive: Normal bowel sounds, Soft; Negative: Tenderness, Hepatospenomegaly Extremity Exam: Positive: Normal pulses; Negative: Clubbing, Cyanosis, Edema Skin Exam: Positive: Nl turgor and temperature; Negative: Breakdown, Lesion Neuro Exam: Positive: Normal Gait, Normal Speech, Cranial Nerves 3-12 NL, Reflexes 2+ Psych Exam: Positive: Mental status NL, Mood NL, Oriented x 3 Vital Signs Vital Signs Date Time Temp Pulse Resp B/P (MAP) Pulse Ox O2 Delivery O2 Flow Rate FiO2 10/12/19 15:31 72 100 10/12/19 13:03 98.1 20 137/67 Room Air Laboratory Data Labs 24H Laboratory Tests 2 10/12/19 05:42: POC Beta HCG, Quantitative < 5.0 10/12/19 05:46: Immature Granulocyte % (Auto) 0.4, Neutrophils (%) (Auto) 64.3, Lymphocytes (%) (Auto) 24.1, Monocytes (%) (Auto) 6.7H, Eosinophils (%) (Auto) 3.9H, Basophils (%) (Auto) 0.6, Neutrophils # (Auto) 5.1, Lymphocytes # (Auto) 1.9, Monocytes # (Auto) 0.5, Eosinophils # (Auto) 0.3, Basophils # (Auto) 0.1, Nucleated Red Bl ood Cells % (auto) 0.3H, Urine Color STRAW, Urine Appearance CLEAR, Urine pH 6.0, Urine Specific [place] 1.005, Urine Protein NEGATIVE, Urine Glucose (UA) NEGATIVE, Urine Ketones NEGATIVE, Urine Blood 1+H, Urine Nitrite NEGATIVE, Urine Bilirubin NEGATIVE, Urine Urobilinogen 0.2, Urine Leukocyte Esterase NEGATIVE, Urine WBC (Auto) 3, Urine RBC (Auto) 0, Urine Hyaline Casts (Auto) 0, Urine Bacteria (Auto) NEGATIVE, Urine Squamous Epithelial Cells 0, Urine Sperm (Auto) , Anion Gap 9, Glomerular Filtration Rate > 60.0, Calcium Level 6.5L 10/12/19 13:31: Immature Granulocyte % (Auto) 0.3, Neutrophils (%) (Auto) 60.3, Lymphocytes (%) (Auto) 27.2, Monocytes (%) (Auto) 7.7H, Eosinophils (%) (Auto) 3.8H, Basophils (%) (Auto) 0.7, Neutrophils # (Auto) 4.4, Lymphocytes # (Auto) 2.0, Monocytes # (Auto) 0.6, Eosinophils # (Auto) 0.3, Basophils # (Auto) 0.1, Nucleated Red Blood Cells % (auto) 0.4H CBC/BMP Laboratory Tests 10/12/19 05:46 10/12/19 13:31 Assessment/Plan 1. symptomatic anemia - admit to med/surg. - PRODUCTION LINE WELDER consult to Dr. South. - s/p 2U PRBC in ED, now getting another 2U as per PRODUCTION LINE WELDER. - repeat CBC post-transfusion. Plan / VTE VTE Prophylaxis Ordered?: Yes MARILU MUJICA MD Oct 12, 2019 16:28
[2019-10-12] MEDS ORDERED: PROCHLORPERAZINE 10 MG/2 ML VIAL (J0780) IV PRN (23:45)
[2019-10-12] MEDS ORDERED: CONJUGATED ESTROGENS 25 MG VIAL (J1410) IV ONE (23:45)
[2019-10-13 00:13] VITALS: BP 131/78
--- NOTE | 2019-10-13 00:37 | CR.PDOC ---
General Date of Consultation: Oct 13, 2019 Consultation REASON FOR CONSULTATION/CHIEF COMPLAINT: Heavy prolonged vaginal bleeding with resultant severe anemia HISTORY OF PRESENT ILLNESS: Deena is a 34yo with lmp 09/18/19 who presented to the ED today with CC of fatigue, ongoing menses since 09/18, low back pain, and nausea. 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 However, patient states she tends to "tough things out" and she kept going until she felt the symptoms were really unbearable. She notes that she had no period at all between May and August. She notes that her bleeding since Aug has been intermittently extremely heavy, to the point that she had to leave a meeting twice when she soaked through pads. Patient endorses that as she has been here, her bleeding is quite heavy currently. She was using Nuvaring up until April 2019. Now she and her use withdrawal and condoms for contraception. She states she is done with childbearing, was contemplating tubal. She also contemplated Nexplanon, but did not want to take OCP because she "already takes thyroid pill". No fevers/chills. No unexpected weight loss. In the ED, Deena received 2 units of pRBCs with increase in Hgb from 6.3 to 7.6. She felt some improvement from the 2 units, but inpatient admission was required to continue transfusing further pRBCs and to treat heavy uterine bleeding. ALLERGIES: Please see below. HOME MEDICATIONS: Please see below. 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 ETOH: occasional/social Illicit drug use: none REVIEW OF SYSTEMS: negative except for what is mentioned in HPI PHYSICAL EXAMINATION: VITAL SIGNS: Please see below. GENERAL APPEARANCE: comfortable, resting in bed ABDOMEN: soft, obese, NTTP EXTREMITIES: no edema of BLE LABORATORY DATA: Please see below. 10/12/2019 at 0546: H/H 6.3/20.9 10/12/2019 at 1331: H/H 7.6/25 (after 2u pRBCs) Radiology: TVUS 10/12/2019 FINDINGS: Uterus/cervix: Uterus measures 10.2 x 5.4 x 6.5 cm Endometrial stripe is thickened and heterogeneous with mild associated vascularity measuring 2.5 cm. Trace fluid along the endometrial canal. Nabothian cysts. Right adnexa: Right ovary measures 6.3 x 3.2 x 4 cm. There is a complex 2.8 x 3.2 x 3 cm right ovarian cyst containing internal low level echoes. Normal waveforms. Left adnexa: Left ovary measures 3.4 x 1.1 x 2 cm. Normal waveforms. Free fluid: None. Bladder: Normal. IMPRESSION: Endometrial stripe is thickened and heterogeneous with mild associated vascularity measuring 2.5 cm. Trace fluid along the endometrial canal. Complex 2.8 x 3.2 x 3 cm right ovarian cyst containing internal low level echoes. No evidence of ovarian torsion. ASSESSMENT: Ti'augie is a 34yo with lmp 09/18/19 presenting with heavy continuous menstrual bleeding with resultant severe anemia, most likely secondary to hormonal dysregulation. Endometrial stripe is thickened at 2.5cm. Vitals wnl (normotensive to mild range bp). 2 units of pRBCs took Hgb from 6.3 to 7.6. PLAN: 1. Patient is finishing 4 units of pRBC transfusion with plan to repeat CBC after 2. Given that patient is still having heavy menstrual bleeding, will order 25mg IV Premarin x1. I anticipate that bleeding will subside over the next 8 hours. She will likely have nausea with this, so prochlorperazine 10mg IV q6hr prn also ordered. 3. Prior to discharge, patient should be started on oral maintenance regimen wit h an OCP that has 35mcg estrogen, giving 2 pills per day for 5 days followed by once a day for 20 days. This will allow patient time to be seen in our clinic where we can perform an endometrial biopsy and place a Mirena IUD (this is what patient would like after counseling on all options to treat AUB- I discussed OCP vs Mirena IUD vs endometrial ablation vs hysterectomy). 4. All other orders per primary team Dr. Agustina South MD Vital Signs/I&O Vital Signs Date Time Temp Pulse Resp B/P (MAP) Pulse Ox O2 Delivery O2 Flow Rate FiO2 10/12/19 22:47 98.0 67 18 139/98 100 10/12/19 21:23 Room Air Laboratory Data Labs 24H Laboratory Tests 2 10/12/19 05:42: POC Beta HCG, Quantitative < 5.0 10/12/19 05:46: Immature Granulocyte % (Auto) 0.4, Neutrophils (%) (Auto) 64.3, Lymphocytes (%) (Auto) 24.1, Monocytes (%) (Auto) 6.7H, Eosinophils (%) (Auto) 3.9H, Basophils (%) (Auto) 0.6, Neutrophils # (Auto) 5.1, Lymphocytes # (Auto) 1.9, Monocytes # (Auto) 0.5, Eosinophils # (Auto) 0.3, Basophils # (Auto) 0.1, Nucleated Red Blood Cells % (auto) 0.3H, Urine Color STRAW, Urine Appearance CLEAR, Urine pH 6.0, Urine Specific [place] 1.005, Urine Protein NEGATIVE, Urine Glucose (UA) NEGATIVE, Urine Ketones NEGATIVE, Urine Blood 1+H, Urine Nitrite NEGATIVE, Urine Bilirubin NEGATIVE, Urine Urobilinogen 0.2, Urine Leukocyte Esterase NEGATIVE, Urine WBC (Auto) 3, Urine RBC (Auto) 0, Urine Hyaline Casts (Auto) 0, Urine Bacteria (Auto) NEGATIVE, Urine Squamous Epithelial Cells 0, Urine Sperm (Auto) , Anion Gap 9, Glomerular Filtration Rate > 60.0, Calcium Level 6.5L 10/12/19 13:31: Immature Granulocyte % (Auto) 0.3, Neutrophils (%) (Auto) 60.3, Lymphocytes (%) (Auto) 27.2, Monocytes (%) (Auto) 7.7H, Eosinophils (%) (Auto) 3.8H, Basophils (%) (Auto) 0.7, Neutrophils # (Auto) 4.4, Lymphocytes # (Auto) 2.0, Monocytes # (Auto) 0.6, Eosinophils # (Auto) 0.3, Basophils # (Auto) 0.1, Nucleated Red Blood Cells % (auto) 0.4H CBC/BMP Laboratory Tests 1/13/20 05:46 10/12/19 13:31 Allergies Coded Allergies: lisinopril (Verified Adverse Reaction, Mild, COUGH, 06/22/19) Home Medications Scheduled Levothyroxine Sodium (Synthroid) 200 Mcg Tablet, 200 MCG PO DAILY, (Reported) Lisinopril (Lisinopril) 5 Mg Tablet, 5 MG PO DAILY, (Reported) Multivitamin (Multivitamins) 1 Each Capsule, 1 CAP PO DAILY, (Reported) Agustina South MD Oct 13, 2019 00:37
[2019-10-13 00:45] LABS: HEMOGLOBIN 9.9 g/dl (12.0-15.5)
[2019-10-13 04:20] VITALS: BP 141/88
[2019-10-13 07:21] LABS: ALBUMIN 2.9 GM/DL (3.2-5.2); ALT/SGPT 15 U/L (12-78); BILIRUBIN,TOTAL 0.7 MG/DL (0.2-1.0); BLOOD UREA NITROGEN 12 MG/DL (7-18); CALCIUM LEVEL 6.2 MG/DL (8.5-10.1); CARBON DIOXIDE LEVEL 25 MEQ/L (21-32); CHLORIDE LEVEL 107 MEQ/L (98-107); CREATININE FOR GFR 0.95 MG/DL (0.55-1.30); GLOMERULAR FILTRATION RATE > 60.0 (>60); GLUCOSE, FASTING 82 MG/DL (70-100); POTASSIUM SERUM 4.2 MEQ/L (3.5-5.1); SODIUM LEVEL 138 MEQ/L (136-145); TOTAL PROTEIN 6.5 GM/DL (6.4-8.2)
[2019-10-13 08:38] LABS: HEMATOCRIT 32.6 % (36.0-47.0); MEAN CORPUSCULAR HEMOGLOBIN 24.8 pg (27.0-33.0); MEAN CORPUSCULAR HGB CONC 30.7 g/dl (32.0-36.5); MEAN CORPUSCULAR VOLUME 80.9 fl (80.0-96.0); PLATELET COUNT, AUTOMATED 384 10^3/uL (150-450); RED BLOOD COUNT 4.03 10^6/uL (4.00-5.40); WHITE BLOOD COUNT 9.2 10^3/uL (4.0-10.0)
[2019-10-13] MEDS ORDERED: INFLUENZA QUADRIVALENT PF VACCINE 0.5ML SYRINGE (90686) IM ONE (09:00)
[2019-10-13 14:00] VITALS: BP 130/84
--- NOTE | 2019-10-13 18:53 | DS.PDOC ---
Discharge Summary General Date of Admission Oct 12, 2019 at 05:02 Date of Discharge 10/13/18 Discharge Summary PROCEDURES PERFORMED DURING STAY: [None]. ADMITTING DIAGNOSES: 1. Symptomatic anemia 2/2 heavy menstrual bleeding DISCHARGE DIAGNOSES: 1. Symptomatic anemia 2/2 heavy menstrual bleeding COMPLICATIONS/CHIEF COMPLAINT: Vaginal Bleeding. HISTORY OF PRESENT ILLNESS: "34 year old female presents with heavy vaginal bleeding. States had her last menstrual period on 09/18/19, which was heavier than usual. Since that time she has had continued episodes of heavy vaginal bleeding, states "at one point I was using 1 pad at least every hour". Increasing weakness and fatigue for the past one week. Presents to the ED for evaluation. Found to have a Hgb/Hct 6.3/21, transfused 2U PRBC in ED, repeat 7.5. 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 South consulted, recommending inpatient admission and 2 more units of PRBC, will see as inpatient." HOSPITAL COURSE: Patient was transfused 4 units pRBC and evaluated by RAG PRODUCTION WORKER. Given a dose of estrogen IV with improvement in symptoms and resolution of bleeding. H/H remained stable and patient asymptomatic. She is discharged to f/u with RAG PRODUCTION WORKER as outpatient for endometrial biopsy and IUD. Started on Cyclafem. Recommended OCP regimen with 35 mcg estrogen 2 tablets BID for 5 days follow by 1 tab daily for additional 20 more days by RAG PRODUCTION WORKER. Prescription written for patient. DISCHARGE MEDICATIONS: Please see below. ALLERGIES: Please see below. PHYSICAL EXAMINATION ON DISCHARGE: VITAL SIGNS: Please see below. General: No acute distress, Alert Eyes: Normal sclera, EOMI, HARSHIL HENT: Atraumatic Cardiovascular: Normal rate, normal rhythm. Pulmonary: Clear to auscultation b/l, no wheezing GI: Soft, nontender, nondistended Skin: Warm and dry Neuro: CN grossly intact. No focal deficits. Strengths equal b/l. Psych: oriented x 3 LABORATORY DATA: Please see below. IMAGING: Pelvis US- IMPRESSION: Endometrial stripe is thickened and heterogeneous with mild associated vascularity measuring 2.5 cm. Trace fluid along the endometrial canal. Complex 2.8 x 3.2 x 3 cm right ovarian cyst containing internal low level echoes. No evidence of ovarian torsion. ACTIVITY: [As tolerated]. DIET: Regular DISCHARGE PLAN: Start on Cyclafem f/u PMD and RAG PRODUCTION WORKER DISPOSITION: 01 Home, Self-Care. DISCHARGE INSTRUCTIONS: Start on Cyclafem f/u PMD and RAG PRODUCTION WORKER ITEMS TO FOLLOWUP ON ON OUTPATIENT: None DISCHARGE CONDITION: [Stable]. TIME SPENT ON DISCHARGE: 35 minutes. Vital Signs/I&Os Vital Signs Date Time Temp Pulse Resp B/P (MAP) Pulse Ox O2 Delivery O2 Flow Rate FiO2 10/13/19 14:00 98.0 72 14 130/84 (99) 100 Room Air I&O- Last 24 Hours up to 6 AM 10/13/19 06:00 Intake Total 2480 ml Balance 2480 ml Laboratory Data Labs 24H Laboratory Tests 2 10/13/19 05:37: Nucleated Red Blood Cells % (auto) 0.0 10/13/19 05:39: Anion Gap 6L, Glomerular Filtration Rate > 60.0, Calcium Level 6.2L, Total Bilirubin 0.7, Aspartate Amino Transf (AST/SGOT) 14, Alanine Aminotransferase (ALT/SGPT) 15, Alkaline Phosphatase 42L, Total Protein 6.5, Albumin 2.9L, Albumin/Globulin Ratio 0.81L CBC/BMP Laboratory Tests 10/13/19 00:06 10/13/19 05:37 10/13/19 05:39 Discharge Medications Scheduled Levothyroxine Sodium (Synthroid) 200 Mcg Tablet, 200 MCG PO DAILY, (Reported) Lisinopril (Lisinopril) 5 Mg Tablet, 5 MG PO DAILY, (Reported) Multivitamin (Multivitamins) 1 Each Capsule, 1 CAP PO DAILY, (Reported) Allergies Coded Allergies: lisinopril (Verified Adverse Reaction, Mild, COUGH, 06/22/19) LUIS MIGUEL CABALLERO MD Oct 13, 2019 18:53
== END 2019-10-13 14:55 | disposition home or self-care (01) ==
LOC: M ED 05:01 → M ED INP 05:02 → ENRESERV 16:36 → M MS5PR 17:45
PROVIDERS: ADMIT Internal Medicine; ATTEND Student in an Organized Health Care Education/Training Program
DX: D64.9 Anemia, unspecified (principal); N92.0 Excessive and frequent menstruation with regular cycle; Z79.899 Other long term (current) drug therapy; N83.01 Follicular cyst of right ovary; Z92.3 Personal history of irradiation; Z85.850 Personal history of malignant neoplasm of thyroid; Z88.8 Allergy status to other drugs, medicaments and biological substances
CPT/HCPCS: 36415; 36430; 76830; 76856; 80048; 80053; 81001; 84702; 85014; 85018; 85025; 85027; 86850; 86900; 86901; 86920; 90471; 90686; 93976; 96374; 96375; 99285; J0780; J1410; P9016

== ENCOUNTER → 2020-02-21 | Outpatient (CLI) | payer OTHER ==
[~2020-02-21] MED LIST changes: -ERYT1OIN26 OP; +ERYT5OIN25 OP; +LEVO2TA PO; +LISI-542 PO; +MULTCAP PO
[2020-02-21 10:56] LABS: CALCIUM LEVEL 7.3 MG/DL (8.5-10.1); FREE T4 1.72 NG/DL (0.76-1.46); PHOSPHORUS LEVEL 4.3 MG/DL (2.5-4.9); THYROID STIMULATING HORMONE 0.398 uIU/ML (0.358-3.740)
[2020-02-24 10:07] LABS: THRYOGLOBULIN ANTIBODIES (ATA) < 1.0 IU/mL (0.0-0.9); THYROGLOBULIN QUANTITATIVE 0.6 ng/mL (1.5-38.5)
== END ==
LOC: M LAB 09:56
PROVIDERS: ATTEND Internal Medicine Endocrinology, Diabetes & Metabolism
DX: C73 Malignant neoplasm of thyroid gland (principal); E89.2 Postprocedural hypoparathyroidism

== ENCOUNTER → 2020-04-25 | Outpatient (REF) | payer OTHER | LOC: M SFHCLUC 13:57 | PROVIDERS: ATTEND Physician Assistant | DX: N10 Acute pyelonephritis (principal) | CPT/HCPCS: 81002; 81025; 87088; 87186; G0463; J0696 ==

== ENCOUNTER 2020-04-26 04:17 | Emergency (ER) | payer OTHER ==
[2020-04-26] MEDS ORDERED: KETOROLAC 30 MG/ML 1ML VIAL As Ordered ONE (06:09)
[2020-04-26] MEDS ORDERED: ACETAMINOPHEN 325 MG TAB As Ordered ONE (06:09)
[2020-05-22 22:56] LABS: ALBUMIN 3.9 GM/DL (3.2-5.2); BILIRUBIN,DIRECT 0.4 MG/DL (0.0-0.2); BILIRUBIN,TOTAL 1.3 MG/DL (0.2-1.0); CALCIUM LEVEL 9.7 MG/DL (8.5-10.1); CREATININE FOR GFR 1.37 MG/DL (0.55-1.30); GLOMERULAR FILTRATION RATE 46.4 (>60); POTASSIUM SERUM 3.8 MEQ/L (3.5-5.1); TOTAL PROTEIN 8.5 GM/DL (6.4-8.2)
[2020-06-04 15:53] LABS: BASO # 0.1 10^3/uL (0.0-0.2); BASO % 0.3 % (0.0-1.0); EOS % 0.1 % (0.0-3.0); HEMATOCRIT 44.4 % (36.0-47.0); HEMOGLOBIN 14.2 g/dl (12.0-15.5); LYMPH # 1.3 10^3/uL (1.5-5.0); LYMPH % 8.7 % (24.0-44.0); MEAN CORPUSCULAR HEMOGLOBIN 26.5 pg (27.0-33.0); MEAN CORPUSCULAR VOLUME 82.8 fl (80.0-96.0); MONO # 1.1 10^3/uL (0.0-0.8); MONO % 6.9 % (0.0-5.0); NEUTROPHILS # 12.6 10^3/uL (1.5-8.5); NEUTROPHILS % 83.5 % (36.0-66.0); PLATELET COUNT, AUTOMATED 361 10^3/uL (150-450); RED BLOOD COUNT 5.36 10^6/uL (4.00-5.40); WHITE BLOOD COUNT 15.1 10^3/uL (4.0-10.0)
[2020-06-04 15:58] LABS: APPEARANCE, URINE HAZY (CLEAR); BACTERIA, URINE AUTO 1+ (NEGATIVE); BILIRUBIN, URINE AUTO NEGATIVE (NEGATIVE); BLOOD, URINE BLOOD 2+ (NEGATIVE); COLOR, URINE YELLOW (YELLOW); GLUCOSE, URINE (UA) AUTO NEGATIVE (NEGATIVE); KETONE, URINE AUTO NEGATIVE (NEGATIVE); LEUKOCYTE ESTERASE, URINE AUTO 3+ (NEGATIVE); NITRITE, URINE AUTO NEGATIVE (NEGATIVE); PROTEIN, URINE AUTO 2+ mg/dL (NEGATIVE); RBC, URINE AUTO 38 /HPF (0-3); SPECIFIC GRAVITY URINE AUTO 1.013 (1.002-1.035); SQUAMOUS EPITHELIAL CELL UR AU 0 /HPF (0-6); UROBILINOGEN, URINE AUTO 0.2 mg/dL (0.0-2.0); WBC, URINE AUTO TNTC /HPF (0-3)
== END 2020-04-26 07:20 | disposition home or self-care (01) ==
LOC: M ED 04:17
DX: R10.9 Unspecified abdominal pain (principal); N10 Acute pyelonephritis; Z79.899 Other long term (current) drug therapy; Z88.6 Allergy status to analgesic agent; Z88.8 Allergy status to other drugs, medicaments and biological substances
CPT/HCPCS: 80048; 80076; 81001; 83690; 84703; 85025; 87040; 87086; 96361; 96374; 99284; J1885

== ENCOUNTER → 2020-06-14 | Outpatient (CLI) | payer OTHER ==
[2020-06-14 13:32] LABS: CALCIUM LEVEL 8.2 MG/DL (8.5-10.1); FREE T4 1.34 NG/DL (0.76-1.46); PHOSPHORUS LEVEL 4.4 MG/DL (2.5-4.9); THYROID STIMULATING HORMONE 1.85 uIU/ML (0.358-3.740)
== END ==
LOC: M LAB 11:48
PROVIDERS: ATTEND Internal Medicine Endocrinology, Diabetes & Metabolism
DX: E89.2 Postprocedural hypoparathyroidism (principal); C73 Malignant neoplasm of thyroid gland

== ENCOUNTER 2020-08-27 07:27 | Emergency (ER) | payer OTHER ==
[~2020-08-27] VITALS: Ht 165.1 cm; Wt 94.7 kg
[2020-08-27] MEDS ORDERED: CALC1CAP31 PO (07:34)
[2020-08-27] MEDS ORDERED: MAGN400C PO (07:34)
[2020-08-27] MEDS ORDERED: CYCLOBENZAPRINE 10MG TABLET PO ONE (07:45)
[2020-08-27] MEDS ORDERED: ACETAMINOPHEN 500 MG TAB PO ONE (07:45)
[2020-08-27] MEDS ORDERED: KETOROLAC 60MG 2ML VIAL IM ONE (07:45)
[2020-08-27] MEDS ORDERED: LIDOCAINE 1% MDV 20ML VIAL IM ONE (08:45)
[2020-08-27 09:44] VITALS: BP 150/100
[2020-08-27] MEDS ORDERED: CYCL-707 PO (10:06)
[2020-08-27] MEDS ORDERED: LIDO5DIS41 TOP (10:07)
== END 2020-08-27 10:14 | disposition home or self-care (01) ==
LOC: M ED 07:27
DX: S16.1XXA Strain of muscle, fascia and tendon at neck level, initial encounter (principal); X58.XXXA Exposure to other specified factors, initial encounter; Y92.9 Unspecified place or not applicable; Y93.9 Activity, unspecified; Y99.9 Unspecified external cause status; F17.200 Nicotine dependence, unspecified, uncomplicated; Z88.8 Allergy status to other drugs, medicaments and biological substances; Z79.899 Other long term (current) drug therapy
CPT/HCPCS: 20552; 96372; 99283; J1885

== ENCOUNTER 2020-10-18 06:54 | Emergency (ER) | payer OTHER ==
[~2020-10-18] VITALS: Ht 165.1 cm; Wt 98.1 kg
[~2020-10-18 06:54] MED LIST changes: +CYCL-707 PO; +LIDO5DIS41 TOP; -LISI-538 PO; -LISI-542 PO; +LISI-898 PO; +LISI10TA22 PO; -LISI10TA4 PO; +LISI20TA33 PO
--- OUTSIDE RECORDS SUMMARY | 2020-10-18 07:03 | CCD ---
Author Author [facility] Organization [facility] Address Unknown Phone Unavailable Care Team Providers Care Oncology Rn Name Role Phone Fish B Brandy LINDA Unavailable Unavailable Fish B Brandy LINDA Unavailable Unavailable Fish B Brandy LINDA Unavailable Unavailable Fish B Brandy LINDA Unavailable Unavailable Fish, B Brandy LINDA Unavailable Unavailable Fish, B Brandy LINDA Unavailable Unavailable Fish, B Brandy LINDA Unavailable Unavailable Fish, Payton Nava MD Unavailable Unavailable Fish B Brandy LINDA Unavailable Unavailable Fish B Brandy LINDA Unavailable Unavailable Fish B Brandy LINDA Unavailable Unavailable Fish B Brandy LINDA Unavailable Unavailable Fish, B Brandy LINDA Unavailable Unavailable Fish, B Brandy LINDA Unavailable Unavailable Fish, B Brandy LINDA Unavailable Unavailable Fish, B Brandy LINDA Unavailable Unavailable Fish B Brandy LINDA Unavailable Unavailable Fish, B Brandy LINDA Unavailable Unavailable Fish, B Brandy LINDA Unavailable Unavailable Fish, B Brandy LINDA Unavailable Unavailable Fish, B Brandy LINDA Unavailable Unavailable Fish, B Brandy LINDA Unavailable Unavailable Fish, B Brandy LINDA Unavailable Unavailable Fish, B Brandy LINDA Unavailable Unavailable Fish B Brandy LINDA Unavailable Unavailable Fish B Brandy LINDA Unavailable Unavailable Fish B Brandy LINDA Unavailable Unavailable Fish B Brandy LINDA Unavailable Unavailable Fish B Brandy LINDA Unavailable Unavailable Fish, B Brandy LINDA Unavailable Unavailable Fish, B Brandy LINDA Unavailable Unavailable Fish, B Brandy LINDA Unavailable Unavailable Fish, B Brandy LINDA Unavailable Unavailable Fish, B Brandy LINDA Unavailable Unavailable Fish, B Brandy LINDA Unavailable Unavailable Fish, B Brandy LINDA Unavailable Unavailable Fish, B Brandy LINDA Unavailable Unavailable Fish, B Brandy LINDA Unavailable Unavailable Fish, B Brandy LINDA Unavailable Unavailable Fish, B Brandy LINDA Unavailable Unavailable Fish, B Brandy LINDA Unavailable Unavailable Fish, B Brandy LINDA Unavailable Unavailable Fish, B Brandy LINDA Unavailable Unavailable Fish, B Brandy LINDA Unavailable Unavailable Fish, B Brandy LINDA Unavailable Unavailable Fish, B Brandy LINDA Unavailable Unavailable Fish, B Brandy LINDA Unavailable Unavailable Fish, B Brandy LINDA Unavailable Unavailable Fish, B Brandy LINDA Unavailable Unavailable Fish, B Brandy LINDA Unavailable Unavailable Fish, B Brandy LINDA Unavailable Unavailable Fish, B Brandy LINDA Unavailable Unavailable Fish, B Brandy LINDA Unavailable Unavailable Fish, B Brandy LINDA Unavailable Unavailable Fish, B Brandy LINDA Unavailable Unavailable Fish, B Brandy LINDA Unavailable Unavailable Fish, B Brandy LINDA Unavailable Unavailable Fish, B Brandy LINDA Unavailable Unavailable Fish, B Brandy LINDA Unavailable Unavailable Fish, B Brandy LINDA Unavailable Unavailable Fish, B Brandy LINDA Unavailable Unavailable Fish, B Brandy LINDA Unavailable Unavailable Fish, B Brandy LINDA Unavailable Unavailable Fish, B Brandy LINAD Unavailable Unavailable Overholt, T Damon PA Unavailable Unavailable Overholt, T Damon PA Unavailable Unavailable Overholt, T Damon PA Unavailable Unavailable Overholt, T Damon PA Unavailable Unavailable Overholt, T Damon PA Unavailable Unavailable Overholt, T Damon PA Unavailable Unavailable Overholt, T Damon PA Unavailable Unavailable Overholt, T Damon PA Unavailable Unavailable Overholt, T Damon PA Unavailable Unavailable Overholt, T Damon PA Unavailable Unavailable Overholt, T Damon PA Unavailable Unavailable Overholt, T Damon PA Unavailable Unavailable Overholt, T Damon PA Unavailable Unavailable Overholt, T Damon PA Unavailable Unavailable Overholt, T Damon PA Unavailable Unavailable Re-disclosure Warning The records that you are about to access may contain information from federally-assisted alcohol or drug abuse programs. If such information is present, then the following federally mandated warning applies: This information has been disclosed to you from records protected by federal confidentiality rules (42 CFR part 2). The federal rules prohibit you from making any further disclosure of this information unless further disclosure is expressly permitted by the written consent of the person to whom it pertains or as otherwise permitted by 42 CFR part 2. A general authorization for the release of medical or other information is NOT sufficient for this purpose. The Federal rules restrict any use of the information to criminally investigate or prosecute any alcohol or drug abuse patient.The records that you are about to access may contain highly sensitive health information, the redisclosure of which is protected by Article 27-F of the [facility] Public Health law. If you continue you may have access to information: Regarding HIV / AIDS; Provided by facilities licensed or operated by the [facility] Office of Mental Health; or Provided by the [facility] Office for People With Developmental Disabilities. If such information is present, then the following [facility] mandated warning applies: This information has been disclosed to you from confidential records which are protected by state law. State law prohibits you from making any further disclosure of this information without the specific written consent of the person to whom it pertains, or as otherwise permitted by law. Any unauthorized further disclosure in violation of state law may result in a fine or alf sentence or both. A general authorization for the release of medical or other information is NOT sufficient authorization for further disc losure. Allergies and Adverse Reactions Type Description Substance Reaction Status Data Source(s ) Lisinopril Lisinopril Lisinopril high doses of me dication cause pounding head aches and nausea Active eCW1 ([facility]) Encounters Encounter Providers Location Date Indications Data Source(s ) Outpatient Attender: Brandy Lopez MD Physical Therapy 02/22 03:15:00 PM EDT MED[facility] ([facility]) Outpatient Attender: Brandy Lopez MD Physical Therapy 01/14 02:00:00 PM EDT [facility] ([facility]) [address] [address] 10/10/2019 12:00:00 AM EST eCW1 ([facility]) Outpatient Attender: Damon TRAN Physical Therapy 08:45:00 AM EST MEDENT ([facility]) Insurance Providers Payer name Policy type / Coverage type Policy ID Covered green party ID Covered green party's relationship to rich Policy Rich Plan Information [facility] [id number] [facility] [id number] CONTRACT CLAIMS SERVICES [id number] SP [id number] PX [id number] SP [id number] [facility] REG O [id number] P [id number] [facility] [id number] [facility] [id number] [facility] O [id number] P [id number] Problems, Conditions, and Diagnoses Code Display Name Description Problem Type Effective Dates Data Source(s) 332680321 Malignant tumor of thyroid gland Malignant tumor of thyroid gland Problem 01/15/2020 12:00:00 AM EDT MED[facility] ([facility]) [id number] Hypoparathyroidism Hypoparathyroidism Problem 12:00:00 AM EDT MED[facility] ([facility]) N93.9 Vaginal bleeding Vaginal bleeding Problem 10/10/2019 12 :00:00 AM EST eCW1 ([facility]) Surgeries/Procedures Procedure Description Date Indications Data Source(s) URINE TEST 10/10/2019 12:00:00 AM EST eCW1 ([facility]) Results ID Date Data Source [id number] 06/14/2020 12:03:00 PM EDT MED[facility] ([facility]) Name Value Range Interpretation Code Description Data Mitzi rce(s) Supporting Document(s) Thyroid Stimulating Hormone 1.850 uIU/ML 0.358-3.740 MED[facility] ([facility]) Free T4 1.34 ng/dL 0.76-1.46 MED[facility] ([facility]) ID Date Data Source [id number] 06/14/2020 12:03:00 PM EDT MED[facility] ([facility]) Name Value Range Interpretation Code Description Data Mitzi rce(s) Supporting Document(s) Calcium [Mass/volume] in Serum or Plasma 8.2 mg/dL 8.5-10.1 MEDENT ([facility]) Phosphate [Moles/volume] in Serum or Plasma 4.4 mg/dL 2.5-4.9 [facility] ([facility]) ID Date Data Source [id number] 02/21/2020 10:12:00 AM EDT [facility] ([facility] Name Value Range Interpretation Code Description Data Mitzi rce(s) Supporting Document(s) Thyroglobulin Quantitative 0.6 ng/mL 1.5-38.5 MED[facility] ([facility]) . According to the National Academy of Clinical Biochemistry, the reference interval for Thyroglobulin (TG) should be related to euthyroid patients and not for patients who underwent thyroidectomy. TG reference intervals for these patients depend on the residual mass of the thyroid tissue left after surgery. Establishing a post-operative baseline is recommended. The assay limit of quantitation is 0.1 ng/mL . Thyroglobulin measured by [employer] [place] Immunometric Assay Performed at: RN - [facility] [address] [id number] Bulldozer Operator: Amara Fischer MD, Phone: [phone] Thryoglobulin Antibodies ([place]) Laboratory test result 0.0-0.9 MEDENT ([facility]) Thyroglobulin Antibody measured by [employer] [place] Methodology ID Date Data Source [id number] 02/21/2020 10:12:00 AM EDT MEDENT ([facility]) Name Value Range Interpretation Code Description Data Mitzi rce(s) Supporting Document(s) Free T4 1.72 ng/dL 0.76-1.46 MED[facility] ([facility] ) Thyroid Stimulating Hormone 0.398 uIU/ML 0.358-3.740 MEDENT ([facility]) ID Date Data Source [id number] 02/21/2020 10:12:00 AM EDT MED[facility] ([facility]) Name Value Range Interpretation Code Description Data Mitzi rce(s) Supporting Document(s) Phosphate [Moles/volume] in Serum or Plasma 4.3 mg/dL 2.5-4.9 MEDENT ([facility]) Calcium [Mass/volume] in Serum or Plasma 7.3 mg/dL 8.5-10.1 MED[facility] ([facility]) ID Date Data Source [id number] 02/21/2020 10:12:00 AM EDT MED[facility] ([facility]) Name Value Range Interpretation Code Description Data Mitzi rce(s) Supporting Document(s) Free T4 Laboratory test result MEDENT ([facility]) Laboratory test finding (navigational concept) Laboratory test result MEDENT ([facility]) Thyroglobulin Ab [Units/volume] in Serum or Plasma Laboratory test re sult MEDENT ([facility]) Calcium [Mass/volume] in Serum or Plasma 7.3 mg/dL 8.5-10.1 [facility] ([facility] ) Phosphate [Moles/volume] in Serum or Plasma 4.3 mg/dL 2.5-4.9 MEDENT ([facility]) Procedure Vital Signs ID Date Data Source UNK Name Value Range Interpretation Code Description Data Source(s) Oxygen saturation in Arterial blood by Pulse oximetry 99 % 99 % MED[facility] ([facility]) Body mass index (BMI) [Ratio] 34.6 kg/m2 34.6 k g/m2 MED[facility] ([facility]) Body weight 208.00 [lb_av] 208.00 [lb_av] MEDEN T ([facility]) Body height 65 [in_i] 65 [in_i] [facility] ([facility]) 5'5" Heart rate 79 /min 79 /min [facility] ([facility]) Diastolic blood pressure 80 mm[Hg] 80 mm[Hg] [facility] ([facility]) Systolic blood pressure 122 mm[Hg] 122 mm[Hg] M EDENT ([facility]) Oxygen saturation in Arterial blood by Pulse oximetry 99 % 99 % [facility] ([facility]) Body mass index (BMI) [Ratio] 34.0 kg/m2 34.0 k g/m2 MED[facility] ([facility]) Body weight 204.50 [lb_av] 204.50 [lb_av] MEDEN T ([facility]) Body height 65 [in_i] 65 [in_i] MED[facility] ([facility]) 5'5" Heart rate 74 /min 74 /min MED[facility] ([facility]) Diastolic blood pressure 70 mm[Hg] 70 mm[Hg] MED[facility] ([facility]) Systolic blood pressure 122 mm[Hg] 122 mm[Hg] M EDENT ([facility]) Diastolic blood pressure 84 mm[Hg] 84 mm[Hg] eCW1 ([facility]) Systolic blood pressure 127 mm[Hg] 127 mm[Hg] e CW1 ([facility]) Body temperature 98.2 [degF] 98.2 [degF] eCW1 ( [facility]) Respiratory rate 16 /min 16 /min eCW1 ([facility]) Heart rate 78 /min 78 /min eCW1 ([facility]) Body mass index (BMI) [Ratio] 34.44 kg/m2 34.44 kg/m2 eCW1 ([facility]) Body height 65 [in_us] 65 [in_us] eCW1 ([facility]) Body weight Measured 207 [lb_av] 207 [lb_av] eC W1 ([facility])
[2020-10-18] MEDS ORDERED: ACETAMINOPHEN 500 MG TAB PO ONE (07:15)
[2020-10-18 07:57] LABS: BASO # 0.1 10^3/uL (0.0-0.2); BASO % 0.9 % (0.0-1.0); EOS # 0.2 10^3/uL (0.0-0.5); EOS % 2.9 % (0.0-3.0); HEMATOCRIT 41.4 % (36.0-47.0); HEMOGLOBIN 13.4 g/dl (12.0-15.5); LYMPH % 23.8 % (24.0-44.0); MEAN CORPUSCULAR HEMOGLOBIN 27.8 pg (27.0-33.0); MEAN CORPUSCULAR HGB CONC 32.4 g/dl (32.0-36.5); MEAN CORPUSCULAR VOLUME 85.9 fl (80.0-96.0); MONO # 0.5 10^3/uL (0.0-0.8); MONO % 6.5 % (0.0-5.0); NEUTROPHILS # 5.4 10^3/uL (1.5-8.5); NEUTROPHILS % 65.5 % (36.0-66.0); PLATELET COUNT, AUTOMATED 351 10^3/uL (150-450); RED BLOOD COUNT 4.82 10^6/uL (4.00-5.40); WHITE BLOOD COUNT 8.2 10^3/uL (4.0-10.0)
[2020-10-18 08:14] LABS: BLOOD UREA NITROGEN 9 MG/DL (7-18); CALCIUM LEVEL 7.8 MG/DL (8.5-10.1); CARBON DIOXIDE LEVEL 27 MEQ/L (21-32); CHLORIDE LEVEL 105 MEQ/L (98-107); CREATININE FOR GFR 0.95 MG/DL (0.55-1.30); GLOMERULAR FILTRATION RATE > 60.0 (>60); GLUCOSE, FASTING 90 MG/DL (70-100); POTASSIUM SERUM 4.2 MEQ/L (3.5-5.1); SODIUM LEVEL 138 MEQ/L (136-145)
--- OUTSIDE RECORDS SUMMARY | 2020-10-18 08:20 | CCD ---
Author [facility] Organization [facility] Address Unknown Phone Unavailable Care Team Providers Care Roughing Mill Operator Name Role Phone Fish B Brandy LINDA Unavailable Unavailable Fish B Brandy LINDA Unavailable Unavailable Fish B Brandy LINDA Unavailable Unavailable Fish B Brandy LINDA Unavailable Unavailable Fish, B Brandy LINDA Unavailable Unavailable Fish, B Brandy LINDA Unavailable Unavailable Fish, B Brandy LINDA Unavailable Unavailable Fish, Payton Nava MD Unavailable Unavailable Fish B Bradny LINDA Unavailable Unavailable Fish B Brandy LINDA [...] Unavailable Fish, B Brandy LINDA Unavailable Unavailable Overholt, T Damon PA Unavailable [...] is protected by Article 27-F of the [facility] Public Health law. If you continue you may have access to information: Regarding HIV / AIDS; Provided by facilities licensed or operated by the [facility] Office of Mental Health; or Provided by the [facility] Office for People With Developmental Disabilities. If such information is present, then the following [facility] mandated warning applies: This information [...] law may result in a fine or half-way sentence or both. A general authorization for the release of medical or other information is NOT sufficient authorization for further disc losure. Allergies and Adverse Reactions Type Description Substance Reaction Status Data Source(s ) Lisinopril Lisinopril Lisinopril high doses of me dication cause pounding head aches and nausea Active eCW1 ([facility]) Encounters Encounter Providers Location Date Indications Data Source(s ) Outpatient Attender: Brandy Lopez MD Physical Therapy 02/22 03:15:00 PM EDT [facility] ([facility]) Outpatient Attender: Brandy Lopez MD Physical Therapy 01/14 02:00:00 PM EDT [facility] ([facility]) [address] [address] 10/10/2019 12:00:00 AM EST eCW1 ([facility]) Outpatient Attender: Damon TRAN Physical Therapy 08:45:00 AM EST [facility] ([facility]) Insurance Providers Payer name Policy type / Coverage type Policy ID Covered republican ID Covered republican's relationship to rich Policy Rich Plan Information [facility] [id number] [facility] [id number] CONTRACT CLAIMS SERVICES [id number] SP [id number] PX [id number] SP [id number] [employer] [facility] REG O [id number] P [id number] [facility] [id number] [facility] [id number] [facility] O [id number] P [id number] Problems, Conditions, and Diagnoses Code Display Name Description Problem Type Effective Dates Data Source(s) [id number] Malignant tumor of thyroid gland Malignant tumor of thyroid gland Problem 01/15/2020 12:00:00 AM EDT MED[facility] ([facility]) [id number] Hypoparathyroidism Hypoparathyroidism Problem 12:00:00 AM EDT [facility] ([facility]) N93.9 Vaginal bleeding Vaginal bleeding Problem 10/10/2019 12 :00:00 AM EST eCW1 ([facility]) Surgeries/Procedures Procedure Description Date Indications Data Source(s) URINE TEST 10/10/2019 12:00:00 AM EST eCW1 ([facility]) Results ID Date Data Source [id number] 06/14/2020 12:03:00 PM EDT MED[facility] ([facility]) Name Value Range Interpretation Code Description Data Mitzi rce(s) Supporting Document(s) Thyroid Stimulating Hormone 1.850 uIU/ML 0.358-3.740 MED[facility] ([facility]) Free T4 1.34 ng/dL 0.76-1.46 [facility] ([facility]) ID Date Data Source [id number] 06/14/2020 12:03:00 PM EDT MED[facility] ([facility]) Name Value Range Interpretation Code Description Data Mitzi rce(s) Supporting Document(s) Calcium [Mass/volume] in Serum or Plasma 8.2 mg/dL 8.5-10.1 [facility] ([facility]) Phosphate [Moles/volume] in Serum or Plasma 4.4 mg/dL 2.5-4.9 [facility] ([facility]) ID Date Data Source [id number] 02/21/2020 10:12:00 AM EDT [facility] ([facility] Name Value Range Interpretation Code Description Data Mitzi rce(s) Supporting Document(s) Thyroglobulin Quantitative 0.6 ng/mL 1.5-38.5 MED[facility] ([facility]) . According to the [...] is 0.1 ng/mL . Thyroglobulin measured by [employer] [place] Immunometric Assay Performed at: RN - [facility] [address] [id number] Real Estate Office Supervisor: Amara Fischer MD, Phone: [phone] Thryoglobulin Antibodies ([place]) Laboratory test result 0.0-0.9 MEDENT ([facility]) Thyroglobulin Antibody measured by [employer] [place] Methodology ID Date Data Source [id number] 02/21/2020 10:12:00 AM EDT MED[facility] ([facility]) Name Value Range Interpretation Code Description Data Mitzi rce(s) Supporting Document(s) Free T4 1.72 ng/dL 0.76-1.46 MED[facility] ([facility] ) Thyroid Stimulating Hormone 0.398 uIU/ML 0.358-3.740 MED[facility] ([facility]) ID Date Data Source [id number] 02/21/2020 10:12:00 AM EDT MEDENT ([facility]) Name Value Range Interpretation Code Description Data Mitzi rce(s) Supporting Document(s) Phosphate [Moles/volume] in Serum or Plasma 4.3 mg/dL 2.5-4.9 MEDENT ([facility]) Calcium [Mass/volume] in Serum or Plasma 7.3 mg/dL 8.5-10.1 [facility] ([facility]) ID Date Data Source [id number] 02/21/2020 10:12:00 AM EDT MEDENT ([facility]) Name Value Range Interpretation Code Description Data Mitzi rce(s) Supporting Document(s) Free T4 Laboratory test result MEDENT ([facility]) Laboratory test finding (navigational concept) Laboratory test result MED[facility] ([facility]) Thyroglobulin Ab [Units/volume] in Serum or Plasma Laboratory test re sult MEDENT ([facility]) Calcium [Mass/volume] in Serum or Plasma 7.3 mg/dL 8.5-10.1 [facility] ([facility] ) Phosphate [Moles/volume] in Serum or Plasma 4.3 mg/dL 2.5-4.9 MED[facility] ([facility]) Procedure Vital Signs ID Date Data Source UNK Name Value Range Interpretation Code Description Data Source(s) Oxygen saturation in Arterial blood by Pulse oximetry 99 % 99 % [facility] ([facility]) Body mass index (BMI) [Ratio] 34.6 kg/m2 34.6 k g/m2 MED[facility] ([facility]) Body weight 208.00 [lb_av] 208.00 [lb_av] MEDEN T ([facility]) Body height 65 [in_i] 65 [in_i] [facility] ([facility]) 5'5" Heart rate 79 /min 79 /min [facility] ([facility]) Diastolic blood pressure 80 mm[Hg] 80 mm[Hg] [facility] ([facility]) Systolic blood pressure 122 mm[Hg] 122 mm[Hg] M EDENT ([facility]) Oxygen saturation in Arterial blood by Pulse oximetry 99 % 99 % [facility] ([facility]) Body mass index (BMI) [Ratio] 34.0 kg/m2 34.0 k g/m2 MED[facility] ([facility]) Body weight 204.50 [lb_av] 204.50 [lb_av] MEDEN T ([facility]) Body height 65 [in_i] 65 [in_i] [facility] ([facility]) 5'5" Heart rate 74 /min 74 /min [facility] ([facility]) Diastolic blood pressure 70 mm[Hg] 70 mm[Hg] MED[facility] ([facility]) Systolic blood pressure 122 mm[Hg] 122 mm[Hg] M EDENT ([facility]) Diastolic blood pressure 84 mm[Hg] 84 mm[Hg] eCW1 ([facility]) Systolic blood pressure 127 mm[Hg] 127 mm[Hg] e CW1 ([facility]) Body temperature 98.2 [degF] 98.2 [degF] eCW1 ( [facility]) Respiratory rate 16 /min 16 /min eCW1 ([facility]) Heart rate 78 /min 78 /min eCW1 ([facility]) Body mass index (BMI) [Ratio] 34.44 kg/m2 34.44 kg/m2 eCW1 ([facility]) Body height 65 [in_us] 65 [in_us] eCW1 ([facility]) Body weight Measured 207 [lb_av] 207 [lb_av] eC W1 ([facility])
[2020-10-18] MEDS ORDERED: CHLORTHALIDONE 25 MG TAB PO ONE (08:30)
[2020-10-18] MEDS ORDERED: MACR100C43 PO (08:57)
[2020-10-18] MEDS ORDERED: CHLO125TA PO (08:57)
[2020-10-18 09:03] VITALS: BP 170/105
== END 2020-10-18 09:05 | disposition home or self-care (01) ==
LOC: M ED 06:54
DX: N39.0 Urinary tract infection, site not specified (principal); I10 Essential (primary) hypertension; Z88.8 Allergy status to other drugs, medicaments and biological substances

== ENCOUNTER 2020-11-19 06:08 | Emergency (ER) | payer OTHER ==
[~2020-11-19] VITALS: Ht 165.1 cm; Wt 97.8 kg
[~2020-11-19 06:08] MED LIST changes: +CHLO125TA PO
--- OUTSIDE RECORDS SUMMARY | 2020-11-19 06:15 | CCD ---
Author [facility] Organization [facility] Address Unknown Phone Unavailable Care Team Providers Care Coagulant Dipper Name Role Phone Fish B Brandy LINDA [...] B Brandy LINDA Unavailable Unavailable Fish, B Branyd LINDA Unavailable Unavailable Fish, B Brandy LINDA [...] B Brandy LINDA Unavailable Unavailable Fish, B Barndy LINDA Unavailable Unavailable Overholt, T Damon PA [...] is protected by Article 27-F of the [facility] Public Health law. If you continue you may have access to information: Regarding HIV / AIDS; Provided by facilities licensed or operated by the [facility] Office of Mental Health; or Provided by the [facility] Office for People With Developmental Disabilities. If such information is present, then the following [facility] mandated warning applies: This information [...] pounding head aches and nausea Active eCW1 ([facility]) Encounters Encounter Providers Location Date Indications Data Source(s ) Outpatient Attender: Brandy Lopez MD Physical Therapy 02/22 03:15:00 PM EDT [facility] ([facility]) Outpatient Attender: Brandy Lopez MD Physical Therapy 01/14 02:00:00 PM EDT MED[facility] ([facility]) [address] [address] 10/10/2019 12:00:00 AM EST eCW1 ([facility]) Outpatient Attender: Damon TRAN Physical Therapy 08:45:00 AM EST MED[facility] ([facility]) Insurance Providers Payer name Policy type / Coverage type Policy ID Covered constitution party ID Covered constitution party's relationship to rich Policy Rich Plan Information [facility] [id number] [facility] [id number] [facility] [id number] [facility] [id number] CONTRACT CLAIMS SERVICES [id number] SP [id number] PX [id number] SP [id number] [facility] O [id number] P [id number] PGBA [facility] [id number] 2 [id number] PGBA [facility] O [id number] P [id number] Problems, Conditions, and Diagnoses Code Display Name Description Problem Type Effective Dates Data Source(s) 035247595 Malignant tumor of thyroid gland Malignant tumor of thyroid gland Problem 01/15/2020 12:00:00 AM EDT MED[facility] ([facility]) [id number] Hypoparathyroidism Hypoparathyroidism Problem 12:00:00 AM EDT [facility] ([facility]) N93.9 Vaginal bleeding Vaginal bleeding Problem 10/10/2019 12 :00:00 AM EST eCW1 ([facility]) Surgeries/Procedures Procedure Description Date Indications Data Source(s) URINE TEST 10/10/2019 12:00:00 AM EST eCW1 ([facility]) Results ID Date Data Source [id number] 06/14/2020 12:03:00 PM EDT [facility] ([facility]) Name Value Range Interpretation Code Description Data Mitzi rce(s) Supporting Document(s) Thyroid Stimulating Hormone 1.850 uIU/ML 0.358-3.740 [facility] ([facility]) Free T4 1.34 ng/dL 0.76-1.46 [facility] ([facility]) ID Date Data Source [id number] 06/14/2020 12:03:00 PM EDT [facility] ([facility]) Name Value Range Interpretation Code Description Data Mitzi rce(s) Supporting Document(s) Calcium [Mass/volume] in Serum or Plasma 8.2 mg/dL 8.5-10.1 [facility] ([facility]) Phosphate [Moles/volume] in Serum or Plasma 4.4 mg/dL 2.5-4.9 [facility] ([facility]) ID Date Data Source [id number] 02/21/2020 10:12:00 AM EDT [facility] ([facility]) Name Value Range Interpretation Code Description Data Mitzi rce(s) Supporting Document(s) Thyroglobulin Quantitative 0.6 ng/mL 1.5-38.5 [facility] ([facility]) . According to the [...] is 0.1 ng/mL . Thyroglobulin measured by Alyssa Loudon Immunometric Assay Performed at: - [facility] [address] [id number] Ingot Caster: Amara Fischer MD, Phone: [phone] Thryoglobulin Antibodies ([facility]) Laboratory test result 0.0-0.9 [facility] ([facility]) Thyroglobulin Antibody measured by [employer] Winsome Methodology ID Date Data Source [id number] 02/21/2020 10:12:00 AM [facility] Name Value Range Interpretation Code Description Data Mitzi rce(s) Supporting Document(s) Free T4 1.72 ng/dL 0.76-1.46 [facility] ([facility] ) Thyroid Stimulating Hormone 0.398 uIU/ML 0.358-3.740 [facility] ([facility]) ID Date Data Source [id number] 02/21/2020 10:12:00 AM EDT [facility] ([facility]) Name Value Range Interpretation Code Description Data Mitzi rce(s) Supporting Document(s) Phosphate [Moles/volume] in Serum or Plasma 4.3 mg/dL 2.5-4.9 [facility] ([facility]) Calcium [Mass/volume] in Serum or Plasma 7.3 mg/dL 8.5-10.1 [facility] ([facility]) ID Date Data Source [id number] 02/21/2020 10:12:00 AM EDT [facility] ([facility]) Name Value Range Interpretation Code Description Data Mitzi rce(s) Supporting Document(s) Free T4 Laboratory test result [facility] ([facility]) Laboratory test finding (navigational concept) Laboratory test result [facility] ([facility]) Thyroglobulin Ab [Units/volume] in Serum or Plasma Laboratory test re sult [facility] ([facility] ) Calcium [Mass/volume] in Serum or Plasma 7.3 mg/dL 8.5-10.1 [facility] ([facility] ) Phosphate [Moles/volume] in Serum or Plasma 4.3 mg/dL 2.5-4.9 [facility] ([facility]) Procedure Vital Signs ID Date Data Source UNK Name Value Range Interpretation Code Description Data Source(s) Oxygen saturation in Arterial blood by Pulse oximetry 99 % 99 % [facility] ([facility]) Body mass index (BMI) [Ratio] 34.6 kg/m2 34.6 k g/m2 [facility] ([facility]) Body weight 208.00 [lb_av] 208.00 [lb_av] MEDEN T ([facility]) Body height 65 [in_i] 65 [in_i] [facility] ([facility]) 5'5" Heart rate 79 /min 79 /min [facility] ([facility]) Diastolic blood pressure 80 mm[Hg] 80 mm[Hg] [facility] ([facility]) Systolic blood pressure 122 mm[Hg] 122 mm[Hg] M EDENT ([facility]) Oxygen saturation in Arterial blood by Pulse oximetry 99 % 99 % [facility] ([facility]) Body mass index (BMI) [Ratio] 34.0 kg/m2 34.0 k g/m2 [facility] ([facility]) Body weight 204.50 [lb_av] 204.50 [lb_av] MEDEN T ([facility]) Body height 65 [in_i] 65 [in_i] [facility] ([facility]) 5'5" Heart rate 74 /min 74 /min [facility] ([facility]) Diastolic blood pressure 70 mm[Hg] 70 mm[Hg] [facility] ([facility]) Systolic blood pressure 122 mm[Hg] 122 mm[Hg] M EDENT ([facility]) Diastolic blood pressure 84 mm[Hg] 84 mm[Hg] eCW1 ([facility]) Systolic blood pressure 127 mm[Hg] 127 mm[Hg] e CW1 ([facility]) Body temperature 98.2 [degF] 98.2 [degF] eCW1 ( [facility]) Respiratory rate 16 /min 16 /min eCW1 ([facility]) Heart rate 78 /min 78 /min eCW1 ([facility]) Body mass index (BMI) [Ratio] 34.44 kg/m2 34.44 kg/m2 eCW1 ([facility]) Body height 65 [in_us] 65 [in_us] eCW1 ([facility]) Body weight Measured 207 [lb_av] 207 [lb_av] eC W1 ([facility])
[2020-11-19] MEDS ORDERED: LISI10TA22 PO (06:18)
[2020-11-19] MEDS ORDERED: ROCA0.5C PO (06:18)
[2020-11-19] MEDS ORDERED: CALC1TAB30 PO (06:18)
[2020-11-19] MEDS ORDERED: METOCLOPRAMIDE INJ 10MG/2ML VIAL (J2765 PER 1) IV ONE (07:00)
[2020-11-19 07:07] LABS: BASO # 0.1 10^3/uL (0.0-0.2); BASO % 0.7 % (0.0-1.0); EOS # 0.3 10^3/uL (0.0-0.5); EOS % 3.8 % (0.0-3.0); HEMATOCRIT 40.7 % (36.0-47.0); HEMOGLOBIN 13.4 g/dl (12.0-15.5); LYMPH % 24.7 % (24.0-44.0); MEAN CORPUSCULAR HEMOGLOBIN 27.6 pg (27.0-33.0); MEAN CORPUSCULAR HGB CONC 32.9 g/dl (32.0-36.5); MEAN CORPUSCULAR VOLUME 83.9 fl (80.0-96.0); MONO # 0.6 10^3/uL (0.0-0.8); MONO % 7.7 % (2.0-8.0); NEUTROPHILS # 5.2 10^3/uL (1.5-8.5); NEUTROPHILS % 62.7 % (36.0-66.0); PLATELET COUNT, AUTOMATED 355 10^3/uL (150-450); RED BLOOD COUNT 4.85 10^6/uL (4.00-5.40); WHITE BLOOD COUNT 8.2 10^3/uL (4.0-10.0)
[2020-11-19 07:10] VITALS: BP 170/81
[2020-11-19 07:20] LABS: INR 0.94; PROTHROMBIN TIME 12.8 SECONDS (12.5-14.3)
[2020-11-19 07:21] LABS: PARTIAL THROMBOPLASTIN TIME 33.3 SECONDS (24.2-38.5)
[2020-11-19 07:33] LABS: ALT/SGPT 27 U/L (12-78); BLOOD UREA NITROGEN 17 MG/DL (7-18); CALCIUM LEVEL 8.5 MG/DL (8.5-10.1); CARBON DIOXIDE LEVEL 27 MEQ/L (21-32); CHLORIDE LEVEL 106 MEQ/L (98-107); CK-MB VALUE MASS 1.5 NG/ML (<3.6); CPK CREATINE PHOSPHOKINASE 94 U/L (26-192); CREATININE FOR GFR 1.03 MG/DL (0.55-1.30); GLOMERULAR FILTRATION RATE > 60.0 (>60); GLUCOSE, FASTING 96 MG/DL (70-100); POTASSIUM SERUM 3.8 MEQ/L (3.5-5.1); SODIUM LEVEL 141 MEQ/L (136-145)
[2020-11-19 07:34] LABS: ALBUMIN 3.5 GM/DL (3.2-5.2); BILIRUBIN,DIRECT 0.2 MG/DL (0.0-0.2); BILIRUBIN,TOTAL 0.9 MG/DL (0.2-1.0); TROPONIN I < 0.02 NG/ML (< 0.10)
[2020-11-19 07:37] LABS: HCG, SERUM QUALITATIVE NEGATIVE (NEGATIVE)
[2020-11-19 07:53] LABS: APPEARANCE, URINE CLEAR (CLEAR); BACTERIA, URINE AUTO 1+ (NEGATIVE); BILIRUBIN, URINE AUTO NEGATIVE (NEGATIVE); BLOOD, URINE BLOOD 1+ (NEGATIVE); COLOR, URINE STRAW (YELLOW); GLUCOSE, URINE (UA) AUTO NEGATIVE (NEGATIVE); KETONE, URINE AUTO NEGATIVE (NEGATIVE); LEUKOCYTE ESTERASE, URINE AUTO TRACE (NEGATIVE); MUCUS, URINE SMALL (NEGATIVE); NITRITE, URINE AUTO NEGATIVE (NEGATIVE); PROTEIN, URINE AUTO NEGATIVE (NEGATIVE); RBC, URINE AUTO 1 /HPF (0-3); SPECIFIC GRAVITY URINE AUTO 1.009 (1.002-1.035); SQUAMOUS EPITHELIAL CELL UR AU 0 /HPF (0-6); UROBILINOGEN, URINE AUTO 0.2 mg/dL (0.0-2.0); WBC, URINE AUTO 3 /HPF (0-3)
--- NOTE | 2020-11-19 07:59 | REPVR ---
PROCEDURE INFORMATION: Exam: CT Head Without Contrast Exam date and time: 11/19/2020 7:42 AM Age: 35 years old Clinical indication: Pain; Headache not specified; Additional info: Headache, HTN TECHNIQUE: Imaging protocol: Computed tomography of the head without contrast. Radiation optimization: All CT scans at this facility use at least one of these dose optimization techniques: automated exposure control; mA and/or kV adjustment per patient size (includes targeted exams where dose is matched to clinical indication); or iterative reconstruction. COMPARISON: CT Head without contrast 03/02/2018 9:50 AM FINDINGS: Brain: Normal. No hemorrhage. Unremarkable white matter. No mass effect. Cerebral ventricles: No ventriculomegaly. Bones/joints: Unremarkable. No acute fracture. Paranasal sinuses: Visualized sinuses are unremarkable. No fluid levels. Mastoid air cells: Visualized mastoid air cells are well aerated. Soft tissues: Unremarkable. IMPRESSION: No CT evidence of acute intracranial hemorrhage, mass effect or midline shift. Depending on patient's clinical history and symptoms, further evaluation with MRI may be considered. Electronically signed by: Mirza Morales On 11/19/2020 07:59:45 AM
[2020-11-19] MEDS ORDERED: KETOROLAC 30 MG/ML 1ML VIAL IV ONE (08:15)
[2020-11-19] MEDS ORDERED: diphenhydrAMINE 50MG/ML VIAL (J1200) IV ONE (08:15)
[2020-11-19] MEDS ORDERED: ACETAMINOPHEN 500 MG TAB PO ONE (08:15)
[2020-11-19] MEDS ORDERED: dexameTHASONE 4 MG/ML 1ML VIAL (J1100 PER 1MG) IV ONE (08:15)
--- OUTSIDE RECORDS SUMMARY | 2020-11-19 08:59 | CCD ---
Author Author [facility] Organization [facility] Address Unknown Phone Unavailable Care Team Providers Care Iphone Developer Name Role Phone Fish B Brandy LINDA [...] is protected by Article 27-F of the [facility] Public Health law. If you continue you may have access to information: Regarding HIV / AIDS; Provided by facilities licensed or operated by the [facility] Office of Mental Health; or Provided by the [facility] Office for People With Developmental Disabilities. If such information is present, then the following [facility] mandated warning applies: This information has been [...] law may result in a fine or nursing home sentence or both. A general authorization for the release of medical or other information is NOT sufficient authorization for further disc losure. Allergies and Adverse Reactions Type Description Substance Reaction Status Data Source(s ) Lisinopril Lisinopril Lisinopril high doses of me dication cause pounding head aches and nausea Active eCW1 ([facility]) Encounters Encounter Providers Location Date Indications Data Source(s ) Outpatient Attender: Brandy Lopez MD Physical Therapy 02/22 03:15:00 PM EDT [facility] ([facility]) Outpatient Attender: Brandy Lopez MD Physical Therapy 01/14 02:00:00 PM EDT [facility] ([facility]) [address] [address] 10/10/2019 12:00:00 AM EST eCW1 ([facility]) Outpatient Attender: Damon TRAN Physical Therapy 08:45:00 AM EST [facility] ([facility]) Insurance Providers Payer name Policy type / Coverage type Policy ID Covered green party ID Covered green party's relationship to rich Policy Rich Plan Information [facility] [id number] [facility] [id number] [facility] [id number] [facility] [id number] CONTRACT CLAIMS SERVICES [id number] SP [id number] PX [id number] SP [id number] [facility] O [id number] P [id number] [facility] [id number] [facility] O [id number] P [id number] Problems, Conditions, and Diagnoses Code Display Name Description Problem Type Effective Dates Data Source(s) 716784231 Malignant tumor of thyroid gland Malignant tumor of thyroid gland Problem 01/15/2020 12:00:00 AM EDT [facility] ([facility]) [id number] Hypoparathyroidism Hypoparathyroidism Problem 12:00:00 AM EDT [facility] ([facility]) N93.9 Vaginal bleeding Vaginal bleeding Problem 10/10/2019 12 :00:00 AM EST eCW1 ([facility]) Surgeries/Procedures Procedure Description Date Indications Data Source(s) URINE TEST 10/10/2019 12:00:00 AM EST eCW1 ([facility]) Results ID Date Data Source [id number] 06/14/2020 12:03:00 PM EDT [facility] ([facility]) Name Value Range Interpretation Code Description Data Mitzi rce(s) Supporting Document(s) Thyroid Stimulating Hormone 1.850 uIU/ML 0.358-3.740 [facility] ([facility]) Free T4 1.34 ng/dL 0.76-1.46 [facility] ([facility]) ID Date Data Source [id number] 06/14/2020 12:03:00 PM EDT [facility] ([facility]) Name Value Range Interpretation Code Description Data Mitzi rce(s) Supporting Document(s) Calcium [Mass/volume] in Serum or Plasma 8.2 mg/dL 8.5-10.1 [facility] ([facility]) Phosphate [Moles/volume] in Serum or Plasma 4.4 mg/dL 2.5-4.9 [facility] ([facility]) ID Date Data Source [id number] 02/21/2020 10:12:00 AM EDT [facility] ([facility]) Name Value Range Interpretation Code Description Data Mitzi rce(s) Supporting Document(s) Thyroglobulin Quantitative 0.6 ng/mL 1.5-38.5 [facility] ([facility]) . According to the [...] 0.1 ng/mL . Thyroglobulin measured by Alyssa Mchenry Immunometric Assay Performed at: - [facility] [address] [id number] Substance Addiction Coordinator: Amara Fischer MD, Phone: [phone] Thryoglobulin Antibodies ([facility]) Laboratory test result 0.0-0.9 [facility] ([facility]) Thyroglobulin Antibody measured by [employer] Winsome Methodology ID Date Data Source [id number] 02/21/2020 10:12:00 AM EDT [facility] Name Value Range Interpretation Code Description Data Mitzi rce(s) Supporting Document(s) Free T4 1.72 ng/dL 0.76-1.46 [facility] ([facility] Thyroid Stimulating Hormone 0.398 uIU/ML 0.358-3.740 [facility] ([facility]) ID Date Data Source [id number] 02/21/2020 10:12:00 AM EDT [facility] ([facility]) Name Value Range Interpretation Code Description Data Mitzi rce(s) Supporting Document(s) Phosphate [Moles/volume] in Serum or Plasma 4.3 mg/dL 2.5-4.9 [facility] ([facility]) Calcium [Mass/volume] in Serum or Plasma 7.3 mg/dL 8.5-10.1 [facility] ([facility]) ID Date Data Source [id number] 02/21/2020 10:12:00 AM EDT [facility] ([facility]) Name Value Range Interpretation Code Description Data Mitzi rce(s) Supporting Document(s) Free T4 Laboratory test result [facility] ([facility]) Laboratory test finding (navigational concept) Laboratory test result [facility] ([facility]) Thyroglobulin Ab [Units/volume] in Serum or Plasma Laboratory test re sult [facility] ([facility] ) Calcium [Mass/volume] in Serum or Plasma 7.3 mg/dL 8.5-10.1 [facility] ([facility] ) Phosphate [Moles/volume] in Serum or Plasma 4.3 mg/dL 2.5-4.9 [facility] ([facility]) Procedure Vital Signs ID Date Data Source UNK Name Value Range Interpretation Code Description Data Source(s) Oxygen saturation in Arterial blood by Pulse oximetry 99 % 99 % [facility] ([facility]) Body mass index (BMI) [Ratio] 34.6 kg/m2 34.6 k g/m2 [facility] ([facility]) Body weight 208.00 [lb_av] 208.00 [lb_av] MEDEN T ([facility]) Body height 65 [in_i] 65 [in_i] [facility] ([facility]) 5'5" Heart rate 79 /min 79 /min [facility] ([facility]) Diastolic blood pressure 80 mm[Hg] 80 mm[Hg] [facility] ([facility]) Systolic blood pressure 122 mm[Hg] 122 mm[Hg] M EDENT ([facility]) Oxygen saturation in Arterial blood by Pulse oximetry 99 % 99 % [facility] ([facility]) Body mass index (BMI) [Ratio] 34.0 kg/m2 34.0 k g/m2 [facility] ([facility]) Body weight 204.50 [lb_av] 204.50 [lb_av] MEDEN T ([facility]) Body height 65 [in_i] 65 [in_i] [facility] ([facility]) 5'5" Heart rate 74 /min 74 /min [facility] ([facility]) Diastolic blood pressure 70 mm[Hg] 70 mm[Hg] [facility] ([facility]) Systolic blood pressure 122 mm[Hg] 122 mm[Hg] M EDENT ([facility]) Diastolic blood pressure 84 mm[Hg] 84 mm[Hg] eCW1 ([facility]) Systolic blood pressure 127 mm[Hg] 127 mm[Hg] e CW1 ([facility]) Body temperature 98.2 [degF] 98.2 [degF] eCW1 ( [facility]) Respiratory rate 16 /min 16 /min eCW1 ([facility]) Heart rate 78 /min 78 /min eCW1 ([facility]) Body mass index (BMI) [Ratio] 34.44 kg/m2 34.44 kg/m2 eCW1 ([facility]) Body height 65 [in_us] 65 [in_us] eCW1 ([facility]) Body weight Measured 207 [lb_av] 207 [lb_av] eC W1 ([facility])
[2020-11-19] MEDS ORDERED: REGL10TA6 PO (10:12)
[2020-11-19] MEDS ORDERED: KETO10TAB PO (10:12)
[2020-11-19 10:21] VITALS: BP 158/92
--- NOTE | 2020-11-19 16:22 | REP ---
INDICATION: hypertensive. COMPARISON: 03/02/2018 TECHNIQUE: Single-view PA chest FINDINGS: The lung cardenas are well inflated without infiltrate, effusion, atelectasis or mass. The heart, mediastinal and hilar contours are normal. The aorta is normal. Airway intact. No widening of the mediastinum. Bony thorax shows no focal lesion. There is no free air under the diaphragm. IMPRESSION: No acute cardiopulmonary change. Stable examination. <Electronically signed by Naeem Jeong > 11/19/20 [id number]
--- NOTE | 2020-11-19 20:52 | ECGEPIP ---
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
== END 2020-11-19 10:26 | disposition home or self-care (01) ==
LOC: M ED 06:08
DX: I10 Essential (primary) hypertension (principal); R51.9 Headache, unspecified; Z79.899 Other long term (current) drug therapy
CPT/HCPCS: 70450; 71045; 80048; 80076; 81001; 82550; 82553; 84484; 84703; 85025; 85610; 85730; 93005; 93041; 94760; 96374; 96375; 99285; J1100; J1200; J1885; J2765

== ENCOUNTER → 2020-12-07 | Outpatient (CLI) | payer OTHER ==
[~2020-12-07] MED LIST changes: +CALC1TAB30 PO; +KETO10TAB PO; +REGL10TA6 PO; +ROCA0.5C PO
[2020-12-07 11:36] LABS: CALCIUM LEVEL 9.6 MG/DL (8.5-10.1); FREE T4 1.44 NG/DL (0.76-1.46); PHOSPHORUS LEVEL 5.5 MG/DL (2.5-4.9); THYROID STIMULATING HORMONE 1.45 uIU/ML (0.358-3.740)
== END ==
LOC: M PLALAB 08:58
PROVIDERS: ATTEND Internal Medicine Endocrinology, Diabetes & Metabolism
DX: C73 Malignant neoplasm of thyroid gland (principal)